=== PATIENT | male | born 1955 | race African-American/Black ===

== ENCOUNTER → 2020-10-09 09:39 | Outpatient (BNVA) | payer BC, MEDICAID, SELFPAY | PROVIDERS: PCP Internal Medicine; Visit Provider Urology | DX: N40.1 Benign prostatic hyperplasia with lower urinary tract symptoms (principal); R32 Unspecified urinary incontinence; N13.8 Other obstructive and reflux uropathy; N52.9 Male erectile dysfunction, unspecified | CPT/HCPCS: 51798 ==

== ENCOUNTER 2020-11-06 11:23 | Outpatient (REF) | payer MEDICARE, MEDICAID, SELFPAY ==
--- NOTE | ~2020-11-06 | US_ITS ---
EXAMINATION: US RETROPERITONEAL COMPLETE (RENAL) CLINICAL INFORMATION: Benign prostatic hyperplasia. COMPARISON: None TECHNIQUE: Real-time imaging of the kidneys and bladder. FINDINGS: RIGHT KIDNEY: 10.7 x 4.6 x 4.8 cm (SAG x AP x TRV). The kidney is normal in size, contour, and echogenicity. Renal cortical thickness is normal. No calculi or focal parenchymal lesions. No hydronephrosis. LEFT KIDNEY: 10.7 x 5.9 x 4.9 cm (SAG x AP x TRV). The kidney is normal in size, contour, and echogenicity. Renal cortical thickness is normal. No calculi or focal parenchymal lesions. No hydronephrosis. BLADDER: Bladder is well-distended. There may be mild diffuse bladder wall thickening. No bladder stone or mass is seen. Bilateral ureteral jets are demonstrated. Prevoid bladder volume is 222 mL. Postvoid bladder volume is 104 mL. The prostate gland is not well visualized. US/US retroperitoneal comp IMPRESSION: Normal renal ultrasound. Question mild diffuse bladder wall thickening. 100 mL post void bladder residual.
== END 2020-11-06 11:24 | disposition home or self-care (01) ==
LOC: HO.US 11:23
PROVIDERS: PCP Internal Medicine; Visit Provider Urology
DX: N40.1 Benign prostatic hyperplasia with lower urinary tract symptoms (principal); N13.8 Other obstructive and reflux uropathy
CPT/HCPCS: 76770

== ENCOUNTER → 2021-01-09 14:47 | Outpatient (BNVA) | payer MEDICARE, MEDICAID, SELFPAY | PROVIDERS: PCP Internal Medicine; Visit Provider Urology | DX: N40.1 Benign prostatic hyperplasia with lower urinary tract symptoms (principal); N13.8 Other obstructive and reflux uropathy; R32 Unspecified urinary incontinence | CPT/HCPCS: 52000; 99212 ==

== ENCOUNTER → 2021-03-13 09:31 | Outpatient (BNVA) | payer MEDICARE, MEDICAID, SELFPAY | PROVIDERS: PCP Internal Medicine; Visit Provider Urology | DX: M53.3 Sacrococcygeal disorders, not elsewhere classified (principal); M47.816 Spondylosis without myelopathy or radiculopathy, lumbar region; N40.1 Benign prostatic hyperplasia with lower urinary tract symptoms; N13.8 Other obstructive and reflux uropathy; R39.15 Urgency of urination; R32 Unspecified urinary incontinence; N52.9 Male erectile dysfunction, unspecified | CPT/HCPCS: 99202; Q3014 ==

== ENCOUNTER → 2021-04-05 13:10 | Outpatient (BNVA) | payer MEDICARE, MEDICAID, SELFPAY | PROVIDERS: PCP Internal Medicine; Visit Provider Nurse Practitioner Family | DX: M53.3 Sacrococcygeal disorders, not elsewhere classified (principal); M47.816 Spondylosis without myelopathy or radiculopathy, lumbar region | CPT/HCPCS: 99212 ==

== ENCOUNTER → 2021-05-22 10:02 | Outpatient (BNVA) | payer MEDICARE, MEDICAID, SELFPAY | PROVIDERS: PCP Family Medicine; Visit Provider Urology | DX: N32.81 Overactive bladder (principal) | CPT/HCPCS: Q3014 ==

== ENCOUNTER 2021-06-10 09:52 | Outpatient (REF) | payer MEDICARE, MEDICAID, SELFPAY ==
[2021-06-10 12:04] LABS: Prostate Specific Antigen 17.94 ng/mL (<0.05-4.0)
[2021-06-10 14:46] LABS: Appearance Urine CLOUDY; Color Urine YELLOW; Glucose Urine UA NEG (NEG); Leukocyte Esterase Urine 3+ (NEG); Nitrite Urine NEG (NEG); PH 5.5 (5.0-8.0); Urine Blood 3+ (NEG); Urine Ketones NEG (NEG); Urine Protein TRACE MG/DL (NEG-TRACE)
[2021-06-10 14:52] LABS: WBC Urine TNTC /HPF (0-4)
[2021-06-10 14:53] LABS: Bacteria Urine 2+ /LPF; Squamous Epithelial Cell Urine TRACE /LPF; WBC Clumps Urine NOTED
== END 2021-06-10 09:53 | disposition home or self-care (01) ==
LOC: HO.10HDL 09:52
PROVIDERS: Visit Provider Urology
DX: Z12.5 Encounter for screening for malignant neoplasm of prostate (principal); N13.8 Other obstructive and reflux uropathy; N40.1 Benign prostatic hyperplasia with lower urinary tract symptoms; N32.81 Overactive bladder
CPT/HCPCS: 36415; 81001; 84153; 87086; 87088; 87186

== ENCOUNTER → 2021-07-10 08:32 | Outpatient (BNVA) | payer MEDICARE, MEDICAID, SELFPAY | PROVIDERS: PCP Family Medicine; Visit Provider Urology | DX: N40.1 Benign prostatic hyperplasia with lower urinary tract symptoms (principal); N13.8 Other obstructive and reflux uropathy; R33.9 Retention of urine, unspecified | CPT/HCPCS: 51798; 99212 ==

== ENCOUNTER 2021-07-31 15:47 | Outpatient (REF) | payer MEDICARE, MEDICAID, SELFPAY ==
[2021-07-31 17:56] LABS: Appearance Urine CLEAR; Color Urine YELLOW; Glucose Urine UA NEG (NEG); Leukocyte Esterase Urine NEG (NEG); Nitrite Urine NEG (NEG); Urine Blood NEG (NEG); Urine Ketones NEG (NEG); Urine Protein NEG (NEG-TRACE)
[2021-07-31 18:48] LABS: Bacteria Urine TRACE /LPF; RBC Urine 0-2 /HPF (0); Squamous Epithelial Cell Urine TRACE /LPF; WBC Urine 0-2 /HPF (0-4)
== END 2021-07-31 15:48 | disposition home or self-care (01) ==
LOC: HO.LAB 15:47
PROVIDERS: Visit Provider Urology
DX: R33.9 Retention of urine, unspecified (principal)
CPT/HCPCS: 81001; 87086

== ENCOUNTER 2021-08-09 14:13 | Outpatient (REF) | payer MEDICARE, MEDICAID, SELFPAY ==
[2021-08-09 15:34] LABS: PSA,Total (Free>4and<10) 1.03 ng/mL (0.00-4.00)
[2021-08-09 15:39] LABS: Blood Urea Nitrogen 16 mg/dL (9-16); Estimated Glomerular Filt Rate 48
== END 2021-08-09 14:14 | disposition home or self-care (01) ==
LOC: HO.LAB 14:13
PROVIDERS: Visit Provider Urology
DX: Z12.5 Encounter for screening for malignant neoplasm of prostate (principal); N13.8 Other obstructive and reflux uropathy; N40.1 Benign prostatic hyperplasia with lower urinary tract symptoms; R39.15 Urgency of urination
CPT/HCPCS: 36415; 82565; 84153; 84520

== ENCOUNTER → 2021-08-22 10:50 | Outpatient (BNVA) | payer MEDICARE, MEDICAID, SELFPAY | PROVIDERS: PCP Family Medicine; Visit Provider Urology | DX: N40.1 Benign prostatic hyperplasia with lower urinary tract symptoms (principal); N13.8 Other obstructive and reflux uropathy; N32.81 Overactive bladder; R33.9 Retention of urine, unspecified | CPT/HCPCS: 51798; 99212 ==

== ENCOUNTER → 2021-11-27 10:25 | Outpatient (BNVA) | payer MEDICARE, MEDICAID, SELFPAY | PROVIDERS: PCP Family Medicine; Visit Provider Urology | DX: N32.81 Overactive bladder (principal); N52.9 Male erectile dysfunction, unspecified; N40.1 Benign prostatic hyperplasia with lower urinary tract symptoms; N13.8 Other obstructive and reflux uropathy; R33.8 Other retention of urine | CPT/HCPCS: Q3014 ==

== ENCOUNTER 2022-07-30 09:37 | Outpatient (REF) | payer MEDICARE, MEDICAID, SELFPAY ==
--- NOTE | ~2022-07-30 | XR_ITS ---
EXAMINATION: XR LUMBOSACRAL SPINE BENDING FILMS ONLY CLINICAL INFORMATION: M48.061 - Spinal stenosis, lumbar region without neurogenic claudication COMPARISON: None available. TECHNIQUE: Standing lateral flexion and lateral extension views of the lumbosacral spine are obtained for 2 views. FINDINGS: There is been prior posterior fusion at L2-L3 with pedicle screws and rodding and disc spacer. There are irregularity of the endplates at L2-L3. Chronicity unknown. Visualized hardware intact. No osteolysis visible around hardware. There are multilevel degenerative changes lower thoracic and lumbosacral spine. Disc narrowing greatest L3-S1. There is limited range of motion at flexion and extension. No instability. No spondylolisthesis or retrolisthesis. XR/XR lumbar spine bending only IMPRESSION: - Status post posterior fusion L2-L3. Hardware intact. - Irregularity endplates around disc spacer at L2-L3. Chronicity unknown. - Multilevel degenerative disc changes. No vertebral compression. - Limited range of motion at flexion and extension. No instability.
== END 2022-07-30 09:38 | disposition home or self-care (01) ==
LOC: HO.HOSX 09:37
PROVIDERS: PCP Family Medicine; Visit Provider Neurological Surgery
DX: M48.061 Spinal stenosis, lumbar region without neurogenic claudication (principal); Z98.1 Arthrodesis status; Z76.0 Encounter for issue of repeat prescription
CPT/HCPCS: 72120; 99212

== ENCOUNTER 2022-09-22 13:10 | Outpatient (REF) | payer MEDICARE, MEDICAID, SELFPAY ==
--- NOTE | ~2022-09-22 | MR_ITS ---
EXAMINATION: MR LUMBAR SPINE WITHOUT AND WITH CONTRAST CLINICAL INFORMATION: Spinal stenosis, lumbar region. COMPARISON: MRI scan of the lumbar spine [facility] 04/08/2018. TECHNIQUE: MRI of the lumbar spine was obtained using routine sequences with and without contrast. Intravenous contrast: Gadavist 10 mL FINDINGS: VERTEBRAL BODIES AND PARASPINAL STRUCTURES: There is a mild levoscoliosis. There is a mild anterolisthesis of L5 on S1 and there is a mild retrolisthesis of L4 on L5. There are now sequelae of an instrumented posterior decompression and fusion at L2-L3, and there are bilateral pedicular screws in L2 and L3 joined by vertical rods; an interbody device is noted at this level. There is a minimal amount of fluid in the subcutaneous soft tissues dorsal to the lumbar spine at L2-L3, without peripheral enhancement, consistent with a small seroma. There is multilevel narrowing of intervertebral disc height at L3-L4, L4-L5 and L5-S1, and in the lower thoracic spine. There are degenerative endplate contour changes at these levels with mild edematous endplate signal and enhancement at L4-L5. Mild fatty endplate signal changes are seen at L5-S1. Vertebral body heights maintained, and no fractures are demonstrated. Overall, marrow signal is slightly heterogenous. The visualized retroperitoneal and pelvic structures are unremarkable. CONUS MEDULLARIS AND CAUDA EQUINA: Normal, terminating at the level of L1. The lower thoracic spinal cord has normal signal and there is no abnormal enhancement. The cauda equina nerve roots and filum terminale appear normal. SPINAL LEVELS: T9-T10 through T11-T12: On the sagittal images there are posterior disc protrusions at these levels without compression of the lower thoracic spinal cord. There are foraminal disc osteophytes bilaterally at T8-T9 and T10 and T10-T11. L1-L2: The facet joints appear normal bilaterally. Disc contour is normal. There is no central stenosis or foraminal narrowing. L2-L3: There are now sequelae of an instrumented posterior decompression and fusion and likely left hemilaminectomy. Posterior vertebral body contours are normal. There is a left foraminal disc protrusion with impingement on the exiting left L2 nerve root, similar compared to prior imaging. There is no central stenosis. L3-L4: There is moderate bilateral facet arthropathy with ligamenta flava hypertrophy and facet joint effusions. There is a shallow posterior disc protrusion flattens the ventral thecal sac, but there is no central stenosis. There are left greater than right foraminal disc protrusions with impingement on the exiting L3 nerve roots bilaterally. There is no central stenosis. L4-L5: There is moderate bilateral facet arthropathy with ligamenta flava hypertrophy and facet joint effusions. There has been slight interval increase in the central and right paracentral disc protrusion with distortion also ventral thecal sac and with narrowing of the right greater than left subarticular recesses. There is mild central stenosis. There is a right foraminal disc protrusion with impingement on the exiting right L4 nerve root, similar compared to prior imaging. L5-S1: There is moderate to severe bilateral facet arthropathy with ligamenta flava hypertrophy and facet joint effusions, more prominent on the left compared to prior imaging. There is unroofing of the disc as a result of the anterolisthesis, and there is mild narrowing of the bilateral subarticular recesses. There are bilateral foraminal disc protrusions with impingement on the exiting L5 nerve roots bilaterally, similar compared to prior imaging. There is no central stenosis. MR/MR lumbar spine wo/w con IMPRESSION: 1. There are now sequelae of an instrumented posterior decompression and fusion at L2-L3. There is a left foraminal disc protrusion impinging on the exiting left L2 nerve root, similar compared to prior imaging. There is no central stenosis. 2. At L4-L5 there is facet arthropathy and there has been slight interval increase in the central and right paracentral disc protrusion. There is narrowing of the right greater than left subarticular recesses and there is mild central stenosis. A right foraminal disc protrusion impinges on the exiting right L4 nerve root, similar compared to prior imaging. 3. At L3-L4 there is facet arthropathy and there is a posterior disc protrusion. There are left greater than right foraminal disc protrusions impinging on the exiting L3 nerve roots. There is no central stenosis. 4. At L5-S1 there is facet arthropathy and there is an anterolisthesis. There are bilateral foraminal disc protrusions impinging on the exiting L5 nerve roots, similar compared to prior imaging. There is no central stenosis.
[2022-09-22 17:41] LABS: Prostate Specific Antigen 0.43 ng/mL (<0.05-4.0)
== END 2022-09-22 13:11 | disposition home or self-care (01) ==
LOC: HO.MRI 13:10
PROVIDERS: Absent Provider Urology; PCP Family Medicine; Visit Provider Neurological Surgery
DX: Z12.5 Encounter for screening for malignant neoplasm of prostate (principal); M48.061 Spinal stenosis, lumbar region without neurogenic claudication; N13.8 Other obstructive and reflux uropathy; N40.1 Benign prostatic hyperplasia with lower urinary tract symptoms; Z98.1 Arthrodesis status
CPT/HCPCS: 36415; 72158; 84153; A9585

== ENCOUNTER 2022-10-09 15:23 | Outpatient (AMB) | payer MEDICARE, MEDICAID, SELFPAY ==
--- NOTE | 2022-10-09 12:20 | A.OFFVIS_ITS ---
Intake Intake Visit Reasons: 6m/PVR Intake Note: Patient presents today for a follow-up on 6mo PVR: Meds- Finasteride, Furosemide, Tadalafil, Mirabegron & Terazosin. Allergies to Antibiotic- Penicillin & Vancomycin Blood Thinner- Furosemide PSA Results- 0.72 ng/mL, 09/22/2022 PVR- 84 ml Dye Range Feeder Required: No Accompanied by: Self / Same As Patient Allergies Penicillins [PENICILLINS] Allergy (Severe, Verified 10/09/22 15:41) ANAPHYLAXIS gabapentin [GABAPENTIN] Allergy (Intermediate, Verified 10/09/22 15:41) RASH lamotrigine [From LAMICTAL] Allergy (Intermediate, Verified 10/09/22 15:41) RASH vancomycin [VANCOMYCIN] Allergy (Intermediate, Verified 10/09/22 15:41) NAUSEA & VOMITING doxycycline [DOXYCYCLINE] Adverse Reaction (Severe, Verified 10/09/22 15:41) DIARRHEA Medication List - Last Reconciled 10/09/22 by Clark Sandoval MD atorvastatin 20 mg PO DAILY baclofen 20 mg PO TID bupropion HCl 300 mg PO QAM bupropion HCl 150 mg PO QAM cetirizine 10 mg PO BID cholecalciferol (vitamin D3) 25 mcg PO DAILY ciclopirox 0.77% appl topical clonazepam 0.5 mg PO DAILY PRN docusate sodium 100 mg PO DAILY epinephrine 0.3 mg IM finasteride 5 mg PO DAILY 90 days fluconazole mg PO fluocinonide 0.05% appl topical fluticasone propionate 50 mcg/actuation 2 sprays intranasal DAILY furosemide 40 mg PO DAILY griseofulvin microsize 500 mg PO DAILY hydrocortisone 2.5% topical BID PRN ketotifen fumarate 0.025%(0.035%) 1 drp ophthalmic (eye) BID lisdexamfetamine (Vyvanse) 70 mg PO QAM lisinopril 40 mg PO DAILY meloxicam 15 mg PO DAILY PRN metoprolol tartrate 12.5 mg PO BID minocycline 50 mg PO BID multivitamin 1 tab PO DAILY omeprazole 20 mg PO DAILY prednisolone acetate 1% 1 drp ophthalmic (eye) BID pregabalin 300 mg PO BID psyllium husk (with sugar) 3.4 gram/7 gram (Wal-Mucil Fiber (sugar)) PO quetiapine 50 - 100 mg PO BEDTIME PRN selenium sulfide 2.5% mL topical BID tadalafil 10 mg PO DAILY 90 days terazosin 5 mg PO BEDTIME vibegron (Gemtesa) 75 mg PO DAILY vortioxetine (Trintellix) 20 mg PO QAM HPI HPI Comments History of Present Illness Details 10/09/2022-- Fredy is a 66-year-old male who presents today to the office for a 6 month follow up. He has seen Dr. Alvarez on 11/27/2021 for erectile dysfunction, overactive bladder, and elevated PSA. He was prescribed Myrbetriq and Cialis. He reports intermittent weak urinary stream. He reports frequent urination for every one hour during the day time. He noticed significant improvement in night time symptoms, urinates 1 time at night now. Of note, his PSA was 17.94 on 06/10/2021, when he was refer red for elevated PSA, subsequent values were within the normal limits. He had PSA done on 08/09/21 which showed 1.03. He also had another PSA done on 09/21/22 which showed 0.43. He is on Finasteride 5 mg, tadalafil 10 mg, terazosin 5 mg. Evaluation today UA: leukocytes: negative; blood: negative; bladder scan PVR 84 mL. Plan: Follow up in 10 weeks Continue tadalafil 10 mg, terazosin 5 mg at night time and finasteride 5 mg daily. Will try the Gemtesa 75 mg to replace Myrbetriq 25 mg. 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 History of colon polyps Incontinence Initial high blood pressure determined by examination UTI (urinary tract infection) Vitamin D deficiency Surgical History H/O angioplasty H/O hand surgery H/O knee surgery History of lumbar laminectomy Hx of colonoscopy Hx of inguinal hernia surgery Hx of tonsillectomy S/P cardiac cath S/P lumbar spinal fusion Status post lumbar spine surgery for decompression of spinal cord Social History Alcohol intake: current Patient Tobacco Use Status: Former Tobacco user Tobacco use type: Cigarette Cigarette Packs Per Day: 0.30 Years Smoked: 44 e-Cigarette/Vaping Use: Never Used Review of Systems Const All systems reviewed & are unremarkable except as noted in HPI and below Reports no additional complaints Eyes Reports no additional complaints ENT Reports no additional complaints Card Denies dyspnea Resp Denies cough and Denies dyspnea GI Reports no additional complaints Musc Reports no additional complaints Skin/Breast Denies rash and Denies unusual bruising Neuro Reports no additional complaints Psych Reports no additional complaints Endo Reports no additional complaints Crescencio/Lymph Reports no additional complaints Aller/Immun Reports no additional complaints Physical Exam Const General: no acute distress and well developed Nutritional Appearance: overweight Orientation/consciousness: patient oriented x3 HEENT Head: Yes normocephalic and Yes atraumatic Eyes Conjunctivae: conjunctivae normal Neck Neck: Yes normal visual inspection Chest Chest palpation & inspection: normal inspection of the chest Resp Effort & Inspection: normal respiratory effort Cardio Rate: regular rate GI Inspection: Yes normal to inspection Palpation (GI): Soft to palpation Skin General skin exam: no rashes or lesions noted Neuro General: patient oriented x3 Extrem General: No pedal edema Psych Appearance: grossly normal Affect: normal affect Office Procedures Post Void Residual Post Residual Void Post Void Residual (PVR): 84 [id number] Void Residual by ultrasound Results AMB Urinalysis, Automated UA Leukoctes 0 Deidra/uL Last Edit by BON Bacon on 10/09/22 16:00 UA Nitrite Negative Last Edit by BON Bacon on 10/09/22 16:00 UA Urobilinogen 0.2 mg/dL Last Edit by BON Bacon on 10/09/22 16:0 0 UA Protein 0 mg/dL Last Edit by BON Bacon on 10/09/22 16:00 UA pH 7.0 Last Edit by BON Bacon on 10/09/22 16:00 UA Blood 0 Alber/uL Last Edit by Whitlola Freitasirez, RMA on 10/09/22 16:00 UA Specific [place] 1.010 Last Edit by Whitlola Freitasirez, RMA on 10/09/22 16: 00 UA Ketone Negative Last Edit by Whitlola Freitasirez, RMA on 10/09/22 16:00 UA Bilirubin 0 mg/dL Last Edit by Finn Mancia, RMA on 10/09/22 16:00 UA Glucose 0 mg/dL Last Edit by Whitlola Gavino, RMA on 10/09/22 16:00 Results Reviewed Results Reviewed: Laboratory Last Values Urine pH (Auto) 7.0 10/09/22 15:28 Specific [place] (Auto) 1.010 10/09/22 15:28 Urine Protein (Auto) 0 mg/dL 10/09/22 15:28 Glucose (UA)(Auto) 0 mg/dL 10/09/22 15:28 Urine Ketones (Auto) Negative 10/09/22 15:28 Urine Blood (Auto) 0 Alber/uL 10/09/22 15:28 Urine Nitrite (Auto) Negative 10/09/22 15:28 Urine Bilirubin (Auto) 0 mg/dL 10/09/22 15:28 Urine Urobilinogen (Auto) 0.2 mg/dL 10/09/22 15:28 Leukocyte Esterase (Auto) 0 Deidra/uL 10/09/22 15:28 Assessment & Plan Assessment & Plan (1) Overactive bladder: Code(s): N32.81 - Overactive bladder (2) Erectile dysfunction: Code(s): N52.9 - Male erectile dysfunction, unspecified (3) BPH (benign prostatic hyperplasia): Code(s): N40.0 - Benign prostatic hyperplasia without lower urinary tract symptoms Plan Follow up in 10 weeks Continue tadalafil 10 mg, terazosin 5 mg at night time and finasteride 5 mg daily. Will try the Gemtesa 75 mg to replace Myrbetriq 25 mg. Orders: Orders AMB Urinalysis Automated 10/09/22 Z13.9 - Encounter for screening, unspecified AMB Post Void Residual by ultrasound 10/09/22 N39.8 - Other specified disorders of urinary system Medications: New vibegron (Gemtesa) 75 mg PO DAILY 90 tabs 1RF Patient Instructions: The patient had an opportunity to ask questions regarding treatment plan. All questions were answered. Laboratory studies and physical exam results were discussed and reviewed in detail. No major barriers to understanding were identified. The patient expressed understanding and agreement with the above treatment plan.? ? ? The patient is aware they should contact our office by phone for worsening of their current condition or the appearance of new symptoms. Compliance is encouraged with any medications and followup testing that is ordered.? ? ? It is a privilege to be allowed the opportunity to participate in the urologic care of your patient. If you have any questions or concerns regarding treatment for the above conditions please do not hesitate to contact me. The office telephone contact is [phone].? ? ? This note is constructed in part using voice recognition software. While every effort has been made to ensure accuracy bleach analyst errors may have been included.? ? ? Yours sincerely,? ? ? Clark Sandoval MD? Coding Level of Care Code Est Pt Level 4 (57361) Diagnoses Overactive bladder N32.81 Erectile dysfunction N52.9 BPH (benign prostatic hyperplasia) N40.0 CPT Codes Post Residual Void - PVR CPT Code: 97533-Bvta Void Residual by ultrasound ([id number])
== END 2022-10-09 16:12 | disposition home or self-care (01) ==
PROVIDERS: Visit Provider Urology
DX: N32.81 Overactive bladder (principal); N52.9 Male erectile dysfunction, unspecified; N40.0 Benign prostatic hyperplasia without lower urinary tract symptoms
CPT/HCPCS: 99214

== ENCOUNTER → 2022-10-09 15:23 | Outpatient (BNVA) | payer MEDICARE, MEDICAID, SELFPAY | PROVIDERS: Visit Provider Urology | DX: N32.81 Overactive bladder (principal); N52.9 Male erectile dysfunction, unspecified; N40.0 Benign prostatic hyperplasia without lower urinary tract symptoms; Z79.899 Other long term (current) drug therapy | CPT/HCPCS: 51798; 99212 ==

== ENCOUNTER 2022-12-23 12:36 | Outpatient (AMB) | payer MEDICARE, MEDICAID, SELFPAY ==
--- NOTE | 2022-12-23 12:58 | MHC.OFFVIS ---
Intake Intake Visit Reasons: 10w/OAB/PVR Intake Note: Patient is Present for Follow Up PVR Urology Medication: Finasteride, Tadalafil,Terazosin Gemtesa Antibiotic Allergies: Penicillin, Vancomycin, Doxycycline Blood Thinners: None Pharmacy: [facility] PVR: 114 Allergies Penicillins [PENICILLINS] Allergy (Severe, Verified 12/23/22 13:08) ANAPHYLAXIS gabapentin [GABAPENTIN] Allergy (Intermediate, Verified 12/23/22 13:08) RASH lamotrigine [From LAMICTAL] Allergy (Intermediate, Verified 12/23/22 13:08) RASH vancomycin [VANCOMYCIN] Allergy (Intermediate, Verified 12/23/22 13:08) NAUSEA & VOMITING doxycycline [DOXYCYCLINE] Adverse Reaction (Severe, Verified 12/23/22 13:08) DIARRHEA HPI HPI Comments History of Present Illness Details Ash is a pleasant male. He is a patient of Dr. Gray. He is seen for the following urologic issues - erectile dysfunction - BPH with urinary leakage - overactive bladder - elevated PSA - 06/21 17 Continue progressive symptoms He is on Finasteride 5 mg, tadalafil 10 mg, terazosin 5 mg Recommend office cystoscopy Lower urinary tract symptoms Ongoing Does have unsensed accidents suggestive of urge - Myrbetriq States stream is adequate Current medications terazosin, finasteride Prior medications tamsulosin Cystoscopy 12/20 small prostate PSA 06/21 [facility] 2.3, 06/21 [facility] 18, 08/21 1.0, 09/21 0.4 Retention was combination tolterodine and Myrbetriq - that elevated PSA Erectile dysfunction Longstanding Has trialed multiple different treatment options Did respond to injections Unable to currently afford these Can trial high-dose tadalafil daily [facility] Medical History Incontinence Vitamin D deficiency Constipation History of colon polyps Bilateral leg edema UTI (urinary tract infection) Herniation of lumbar intervertebral disc with radiculopathy Initial high blood pressure determined by examination Glaucoma Dry eyes Hernia of abdominal cavity Surgical History S/P lumbar spinal fusion Hx of inguinal hernia surgery History of lumbar laminectomy H/O knee surgery H/O hand surgery Hx of colonoscopy H/O angioplasty S/P cardiac cath Status post lumbar spine surgery for decompression of spinal cord Hx of tonsillectomy Social History Alcohol intake: current Patient Tobacco Use Status: Former Tobacco user Tobacco use type: Cigarette Cigarette Packs Per Day: 0.30 Years Smoked: 44 e-Cigarette/Vaping Use: Never Used Review of Systems Const Denies chills and Denies fever(s) Card Reports no additional complaints and Denies syncope Resp Denies cough GI Denies abdominal pain and Denies heartburn Reports as per HPI and Denies change in libido Neuro Denies syncope Psych Denies change in libido Endo Denies change in libido Physical Exam Const General: cooperative, healthy appearing, comfortable and no acute distress Orientation/consciousness: patient oriented x3 HEENT Face and sinus: Yes normal facial exam Mouth: moist mucous membranes Neck Neck: Yes normal visual inspection, Yes full ROM and Yes trachea midline Chest Chest palpation & inspection: normal inspection of the chest Resp Effort & Inspection: normal respiratory effort, able to speak in complete sentences and no respiratory distress GI Inspection: Yes normal to inspection Back/Spine/Pelvis Cervical Spine: normal cervical lordosis Thoracic/Lumbar Spine: thoracic and lumbar spine normal to inspection Skin General skin exam: no rashes or lesions noted Neuro General: patient oriented x3, gait normal, tone normal and moves all extremities Extrem General: Yes normal to inspection and Yes capillary refill normal Office Procedures Post Void Residual Post Residual Void Post Void Residual (PVR): 114 [id number] Void Residual by ultrasound Results AMB Urinalysis, Automated UA Leukoctes 0 Deidra/uL Last Edit by BON Baig on 12/23/22 13:14 UA Nitrite Negative Last Edit by BON Baig on 12/23/22 13:14 UA Urobilinogen 0.2 mg/dL Last Edit by BON Baig on 12/23/22 13:14 UA Protein 0 mg/dL Last Edit by BON Baig on 12/23/22 13:14 UA pH 6.0 Last Edit by BON Baig on 12/23/22 13:14 UA Blood 0 Alber/uL Last Edit by BON Baig on 12/23/22 13:14 UA Specific [place] 1.015 Last Edit by Kelly Steele RMA on 12/23/22 13:14 UA Ketone Negative Last Edit by Kelly Steele RMA on 12/23/22 13:14 UA Bilirubin 0 mg/dL Last Edit by Kelly Steele, RMA on 12/23/22 13:14 UA Glucose 0 mg/dL Last Edit by Kelly Steele, RMA on 12/23/22 13:14 Results Reviewed Results Reviewed: Laboratory Last Values Urine pH (Auto) 6.0 12/23/22 13:08 Specific [place] (Auto) 1.015 12/23/22 13:08 Urine Protein (Auto) 0 mg/dL 12/23/22 13:08 Glucose (UA)(Auto) 0 mg/dL 12/23/22 13:08 Urine Ketones (Auto) Negative 12/23/22 13:08 Urine Blood (Auto) 0 Alber/uL 12/23/22 13:08 Urine Nitrite (Auto) Negative 12/23/22 13:08 Urine Bilirubin (Auto) 0 mg/dL 12/23/22 13:08 Urine Urobilinogen (Auto) 0.2 mg/dL 12/23/22 13:08 Leukocyte Esterase (Auto) 0 Deidra/uL 12/23/22 13:08 Assessment & Plan Assessment & Plan (1) BPH (benign prostatic hyperplasia): Code(s): N40.0 - Benign prostatic hyperplasia without lower urinary tract symptoms (2) Overactive bladder: Code(s): N32.81 - Overactive bladder Plan Plan office cystoscopy Orders: Orders AMB Urinalysis Automated 12/23/22 Z13.9 - Encounter for screening, unspecified AMB Post Void Residual by ultrasound 12/23/22 N40.0 - Benign prostatic hyperplasia without lower urinary tract symptoms Patient Instructions: Imaging studies, laboratory and physical exam results were discussed and reviewed in detail. No major barriers to patient understanding were identified. An opportunity to ask questions regarding the treatment plan was provided. All questions were answered. The patient expressed understanding and agreement with the above treatment plan. The patient is aware they should contact our office by phone for worsening of their current condition or the appearance of new urologic symptoms. Compliance is encouraged with any medications and followup testing that is ordered. It is a privilege to participate in the urologic care of your patient. If you have any questions or concerns regarding treatment for the above conditions, or other urologic issues, please do not hesitate to contact me. The office telephone contact is [phone]. This note is constructed using voice recognition software. While every effort has been made to ensure accuracy magnetic healer errors may have been included. Yours sincerely, Dr Kailash Alvarez MD, [facility] - Urology Providers of Expert, Compassionate Care for the Genitourinary System Coding Level of Care Code Est Pt Level 3 (06652) Diagnoses BPH (benign prostatic hyperplasia) N40.0 Overactive bladder N32.81 CPT Codes Post Residual Void - PVR CPT Code: 30813-Mqhx Void Residual by ultrasound ([id number])
== END 2022-12-23 13:27 | disposition home or self-care (01) ==
PROVIDERS: PCP Family Medicine; Referring Provider Family Medicine; Visit Provider Urology
DX: N40.0 Benign prostatic hyperplasia without lower urinary tract symptoms (principal); N32.81 Overactive bladder
CPT/HCPCS: 99213

== ENCOUNTER → 2022-12-23 12:36 | Outpatient (BNVA) | payer MEDICARE, MEDICAID, SELFPAY | PROVIDERS: PCP Family Medicine; Visit Provider Urology | DX: N40.0 Benign prostatic hyperplasia without lower urinary tract symptoms (principal); N32.81 Overactive bladder | CPT/HCPCS: 51798; 81003; 99212 ==

== ENCOUNTER 2023-03-10 13:45 | Outpatient (AMB) | payer MEDICARE, MEDICAID, SELFPAY ==
--- NOTE | 2023-03-10 14:10 | A.OFFVIS_ITS ---
Intake Intake Visit Reasons: Cysto(BPH) Intake Note: Patient is Present for Cystoscopy Urology Med: Finasteride, Tadalafil ,Terazosin , Gemtesa Antibiotic Allergy:Penicillin, Vancomycin, Doxycycline Blood Thinner: None URO- G Disposable Cystoscope lot: [id number] exp: 07/13/2024 Allergies Penicillins [PENICILLINS] Allergy (Severe, Verified 12/23/22 13:08) ANAPHYLAXIS gabapentin [GABAPENTIN] Allergy (Intermediate, Verified 12/23/22 13:08) RASH lamotrigine [From LAMICTAL] Allergy (Intermediate, Verified 12/23/22 13:08) RASH vancomycin [VANCOMYCIN] Allergy (Intermediate, Verified 12/23/22 13:08) NAUSEA & VOMITING doxycycline [DOXYCYCLINE] Adverse Reaction (Severe, Verified 12/23/22 13:08) DIARRHEA HPI HPI Comments History of Present Illness Details Ash is a pleasant male. He is a patient of Dr. Gray. He is seen for the following urologic issues - erectile dysfunction - BPH with urinary leakage - overactive bladder - elevated PSA - 06/21 17 Here for office cystoscopy Open bladder neck Recommendations to minimize stimulants Continue current therapy He is on Finasteride 5 mg, tadalafil 10 mg, terazosin 5 mg Lower urinary tract symptoms Ongoing Does have unsensed accidents suggestive of urge - Myrbetriq States stream is adequate Current medications terazosin, finasteride Prior medications tamsulosin Cystoscopy 12/20 small prostate PSA 06/21 [facility] 2.3, 06/21 [facility] 18, 08/21 1.0, 09/21 0.4 Retention was combination tolterodine and Myrbetriq - that elevated PSA Erectile dysfunction Longstanding Has trialed multiple different treatment options Did respond to injections Unable to currently afford these Can trial high-dose tadalafil daily PFSH Medical History Incontinence Vitamin D deficiency Constipation History of colon polyps Bilateral leg edema UTI (urinary tract infection) Herniation of lumbar intervertebral disc with radiculopathy Initial high blood pressure determined by examination Glaucoma Dry eyes Hernia of abdominal cavity Surgical History S/P lumbar spinal fusion Hx of inguinal hernia surgery History of lumbar laminectomy H/O knee surgery H/O hand surgery Hx of colonoscopy H/O angioplasty S/P cardiac cath Status post lumbar spine surgery for decompression of spinal cord Hx of tonsillectomy Social History Alcohol intake: current Patient Tobacco Use Status: Former Tobacco user Tobacco use type: Cigarette Cigarette Packs Per Day: 0.30 Years Smoked: 44 e-Cigarette/Vaping Use: Never Used Review of Systems Const Denies chills and Denies fever(s) Card Reports no additional complaints and Denies syncope Resp Denies cough GI Denies abdominal pain and Denies heartburn Reports as per HPI and Denies change in libido Neuro Denies syncope Psych Denies change in libido Endo Denies change in libido Physical Exam Const General: cooperative, healthy appearing, comfortable and no acute distress Orientation/consciousness: patient oriented x3 HEENT Face and sinus: Yes normal facial exam Mouth: moist mucous membranes Neck Neck: Yes normal visual inspection, Yes full ROM and Yes trachea midline Chest Chest palpation & inspection: normal inspection of the chest Resp Effort & Inspection: normal respiratory effort, able to speak in complete sentences and no respiratory distress GI Inspection: Yes normal to inspection Back/Spine/Pelvis Cervical Spine: normal cervical lordosis Thoracic/Lumbar Spine: thoracic and lumbar spine normal to inspection Skin General skin exam: no rashes or lesions noted Neuro General: patient oriented x3, gait normal, tone normal and moves all extremities Extrem General: Yes normal to inspection and Yes capillary refill normal Office Procedures Cystoscopy Consent Discussed risk and benefit or proposed procedure with the patient. Information consent for procedure given to the patient. Discussed technical aspects, risks, benefits and alternatives in full. Addressed all of the patient's questions and concerns regarding the procedure. The patient demonstrated knowledge and understanding. They wish to proceed with this procedure. Preparation The patient was prepped in the usual manner. A refrigerated company driver was present and in the room. Genitalia was prepped with betadine solution in a sterile manner. Lidocaine Jelly 2% was placed into the urethra and 16Fr flexible Olympus cystoscope was inserted into the meatus after adequate lubrication. Procedure Meatus - Urethra anterior and posterior urethra normal Prostatic Urethra unremarkable Bladder examination with retroflexion of cystoscope Bladder Orifices normal shape and position Bladder Capacity medium Trabeculations grade 2 Cellule Formation - Diverticulum Formation none - severity location Mucosal Erythema - Bladder Tumor - 48219-[id number] DISPOSABLE SCOPE URO-G FLEXIBLE SCOPE Procedure code (CPT) selection complete Office Meds lidocaine HCl 2 % mucosal jelly in applicator Performing Provider: Kailash Alvarez MD [place] [facility] Administered by: Andie Dugan RN on 03/10/23 14:20 Dose Route Admin Location Dispensed Lot Number Expiration Date NDC Patrol Man 10 mL intra-urethral 10 mL nitrofurantoin monohydrate/macrocrystals 100 mg capsule Performing Provider: Kailash Alvarez MD Performing [place] [facility] Administered by: Andie Dugan RN on 03/10/23 14:20 Dose Route Admin Location Dispensed Lot Number Expiration Date NDC Patrol Man 100 mg PO 1 cap naproxen 500 mg tablet Performing Provider: Kailash Alvarez MD Performing Location[place] [facility] Administered by: Andie Dugan RN on 03/10/23 14:20 Dose Route Admin Location Dispensed Lot Number Expiration Date NDC Patrol Man 500 mg PO 1 tab Assessment & Plan Assessment & Plan (1) BPH (benign prostatic hyperplasia): Code(s): N40.0 - Benign prostatic hyperplasia without lower urinary tract symptoms (2) Elevated PSA: Code(s): R97.20 - Elevated prostate specific antigen [PSA] Plan Six-month follow-up PVR Orders: Orders AMB Cystoscopy 03/10/23 N40.1 - Benign prostatic hyperplasia with lower urinary tract symptoms, N13.8 - Other obstructive and reflux uropathy Medications: Changed From terazosin 5 mg PO BEDTIME N40.1 - Benign prostatic hyperplasia with lower urinary tract symptoms, N13.8 - Other obstructive and reflux uropathy, N40.0 - Benign prostatic hyperplasia without lower urinary tract symptoms To terazosin 5 mg PO BEDTIME 90 caps 1RF 90 days N40.1 - Benign prostatic hyperplasia with lower urinary tract symptoms, N13.8 - Other obstructive and reflux uropathy, N40.0 - Benign prostatic hyperplasia without lower urinary tract symptoms Refilled finasteride 5 mg PO DAILY 90 tabs 1RF 90 days N40.1 - Benign prostatic hyperplasia with lower urinary tract symptoms, N13.8 - Other obstructive and reflux uropathy Patient Instructions: Imaging studies, laboratory and physical exam results were discussed and reviewed in detail. No major barriers to patient understanding were identified. An opportunity to ask questions regarding the treatment plan was provided. All questions were answered. The patient expressed understanding and agreement with the above treatment plan. The patient is aware they should contact our office by phone for worsening of their current condition or the appearance of new urologic symptoms. Compliance is encouraged with any medications and followup testing that is ordered. It is a privilege to participate in the urologic care of your patient. If you have any questions or concerns regarding treatment for the above conditions, or other urologic issues, please do not hesitate to contact me. The office telephone contact is [phone]. This note is constructed using voice recognition software. While every effort has been made to ensure accuracy outdoor landscape architect errors may have been included. Yours sincerely, Dr Kailash Alvarez MD, [facility] - Urology Providers of Expert, Compassionate Care for the Genitourinary System Coding Level of Care Code Est Pt Level 3 (46134) Diagnoses BPH (benign prostatic hyperplasia) N40.0 Elevated PSA R97.20 CPT Codes Cystoscopy - CPT: 04371-[id number] ([id number])
== END 2023-03-10 14:40 | disposition home or self-care (01) ==
PROVIDERS: PCP Family Medicine; Visit Provider Urology
DX: N40.0 Benign prostatic hyperplasia without lower urinary tract symptoms (principal); R97.20 Elevated prostate specific antigen [PSA]
CPT/HCPCS: 52000; 99213

== ENCOUNTER → 2023-03-10 13:45 | Outpatient (BNVA) | payer MEDICARE, MEDICAID, SELFPAY | PROVIDERS: PCP Family Medicine; Visit Provider Urology | DX: N40.0 Benign prostatic hyperplasia without lower urinary tract symptoms (principal); R97.20 Elevated prostate specific antigen [PSA] | CPT/HCPCS: 52000; 99212 ==

== ENCOUNTER 2023-09-08 13:31 | Outpatient (AMB) | payer MEDICARE, MEDICAID, SELFPAY ==
--- NOTE | 2023-09-08 13:45 | MHC.OFFVIS ---
Intake Visit Reasons: 6m/PVR Intake Note: Patient is Present for PVR/ Urology Med: Gemtesa, Finasteride, Terazosin, Tadalafil Antibiotic Allergy: Penicillins, Blood Thinner: None Last PVR: 114 Todays PVR: 135 Bioinformatician Required: No Allergies Penicillins [PENICILLINS] Allergy (Severe, Verified 09/08/23 13:57) ANAPHYLAXIS gabapentin [GABAPENTIN] Allergy (Intermediate, Verified 09/08/23 13:57) RASH lamotrigine [From LAMICTAL] Allergy (Intermediate, Verified 09/08/23 13:57) RASH vancomycin [VANCOMYCIN] Allergy (Intermediate, Verified 09/08/23 13:57) NAUSEA & VOMITING doxycycline [DOXYCYCLINE] Adverse Reaction (Severe, Verified 09/08/23 13:57) DIARRHEA Medication List - Last Reconciled 09/08/23 by Kailash Alvarez MD atorvastatin 20 mg PO DAILY baclofen 20 mg PO TID bupropion HCl XL 300 mg PO QAM bupropion HCl XL 150 mg PO QAM cetirizine 10 mg PO BID cholecalciferol (vitamin D3) 25 mcg PO DAILY ciclopirox 0.77% appl topical clonazepam 0.5 mg PO DAILY PRN docusate sodium 100 mg PO DAILY epinephrine 0.3 mg IM finasteride 5 mg PO DAILY 90 days fluconazole mg PO fluocinonide 0.05% appl topical fluticasone propionate 50 mcg/actuation 2 sprays intranasal DAILY furosemide 40 mg PO DAILY griseofulvin microsize 500 mg PO DAILY hydrocortisone 2.5% topical BID PRN ketotifen fumarate 0.025%(0.035%) 1 drp ophthalmic (eye) BID lisdexamfetamine (Vyvanse) 70 mg PO QAM lisinopril 40 mg PO DAILY meloxicam 15 mg PO DAILY PRN metoprolol tartrate 12.5 mg PO BID minocycline 50 mg PO BID multivitamin 1 tab PO DAILY omeprazole 20 mg PO DAILY prednisolone acetate 1% 1 drp ophthalmic (eye) BID pregabalin 300 mg PO BID psyllium husk (with sugar) 3.4 gram/7 gram (Wal-Mucil Fiber (sugar)) PO quetiapine 50 - 100 mg PO BEDTIME PRN selenium sulfide 2.5% mL topical BID terazosin 5 mg PO BEDTIME 90 days vibegron (Gemtesa) 75 mg PO DAILY vortioxetine (Trintellix) 20 mg PO QAM HPI Comments Details: Ash is a pleasant male. He is a patient of Dr. Gray. He is seen for the following urologic issues - erectile dysfunction - BPH with urinary leakage - overactive bladder - elevated PSA - 06/21 17 Current PVR 120 cc Continue current therapy He is on Finasteride 5 mg, tadalafil 10 mg, terazosin 5 mg, Gemtessa Has complicated medical history Currently with bilateral pitting edema. We will be calling primary care. Lower urinary tract symptoms Ongoing Does have unsensed accidents suggestive of urge - Myrbetriq States stream is adequate Current medications terazosin, finasteride Prior medications tamsulosin Cystoscopy 12/20 small prostate - open neck PSA 06/21 [facility] 2.3, 06[place] [facility] [place], 08/21 1.0, 09/21 0.4 Retention was combination tolterodine and Myrbetriq - that elevated PSA Erectile dysfunction Longstanding Has trialed multiple different treatment options Did respond to injections Unable to currently afford these Can trial high-dose tadalafil daily PFSH Medical History Incontinence Vitamin D deficiency Constipation History of colon polyps Bilateral leg edema UTI (urinary tract infection) Herniation of lumbar intervertebral disc with radiculopathy Initial high blood pressure determined by examination Glaucoma Dry eyes Hernia of abdominal cavity Surgical History S/P lumbar spinal fusion Hx of inguinal hernia surgery History of lumbar laminectomy H/O knee surgery H/O hand surgery Hx of colonoscopy H/O angioplasty S/P cardiac cath Status post lumbar spine surgery for decompression of spinal cord Hx of tonsillectomy Social History Alcohol intake: current Patient Tobacco Use Status: Former Tobacco user Tobacco use type: Cigarette Cigarette Packs Per Day: 0.30 Years Smoked: 44 e-Cigarette/Vaping Use: Never Used Review of Systems Const Denies chills and Denies fever(s) Card Reports no additional complaints and Denies syncope Resp Denies cough GI Denies abdominal pain and Denies heartburn Reports as per HPI and Denies change in libido Neuro Denies syncope Psych Denies change in libido Endo Denies change in libido Physical Exam Const General: cooperative, healthy appearing, comfortable and no acute distress Orientation/consciousness: patient oriented x3 HEENT Face and sinus: Yes normal facial exam Mouth: moist mucous membranes Neck Neck: Yes normal visual inspection, Yes full ROM and Yes trachea midline Chest Chest palpation & inspection: normal inspection of the chest Resp Effort & Inspection: normal respiratory effort, able to speak in complete sentences and no respiratory distress GI Inspection: Yes normal to inspection Back/Spine/Pelvis Cervical Spine: normal cervical lordosis Thoracic/Lumbar Spine: thoracic and lumbar spine normal to inspection Skin General skin exam: no rashes or lesions noted Neuro General: patient oriented x3, gait normal, tone normal and moves all extremities Extrem General: Yes normal to inspection and Yes capillary refill normal Office Procedures Post Void Residual Post Residual Void Post Void Residual (PVR): 135 [id number] Void Residual by ultrasound Assessment & Plan Assessment & Plan (1) BPH (benign prostatic hyperplasia): Code(s): N40.0 - Benign prostatic hyperplasia without lower urinary tract symptoms Category: Medical (2) Elevated PSA: Code(s): R97.20 - Elevated prostate specific antigen [PSA] Category: Medical (3) Urinary retention with incomplete bladder emptying: Code(s): R33.9 - Retention of urine, unspecified Category: Medical (4) Overactive bladder: Code(s): N32.81 - Overactive bladder Category: Medical (5) Urinary incontinence: Code(s): R32 - Unspecified urinary incontinence Category: Medical Plan Six-month follow-up nurse-practitioner Orders: Orders AMB Post Void Residual by ultrasound Today R33.9 - Retention of urine, unspecified Medications: Discontinued tadalafil Discontinued Reason: Patient Completed Course 10 mg PO DAILY 90 days 90 tabs 0RF sexual activity N52.01 - Erectile dysfunction due to arterial insufficiency Patient Instructions: Imaging studies, laboratory and physical exam results were discussed and reviewed in detail. No major barriers to patient understanding were identified. An opportunity to ask questions regarding the treatment plan was provided. All questions were answered. The patient expressed understanding and agreement with the above treatment plan. The patient is aware they should contact our office by phone for worsening of their current condition or the appearance of new urologic symptoms. Compliance is encouraged with any medications and followup testing that is ordered. It is a privilege to participate in the urologic care of your patient. If you have any questions or concerns regarding treatment for the above conditions, or other urologic issues, please do not hesitate to contact me. The office telephone contact is [phone]. This note is constructed using voice recognition software. While every effort has been made to ensure accuracy electro optical engineer errors may have been included. Yours sincerely, Dr Kailash Alvarez MD, [facility] - Urology Providers of Expert, Compassionate Care for the Genitourinary System Coding Level of Care Code Est Pt Level 3 (86505) Diagnoses BPH (benign prostatic hyperplasia) N40.0 Elevated PSA R97.20 Urinary retention with incomplete bladder emptying R33.9 Overactive bladder N32.81 Urinary incontinence R32 CPT Codes Post Residual Void - PVR CPT Code: 35483-Pncn Void Residual by ultrasound ([id number])
== END 2023-09-08 14:20 | disposition home or self-care (01) ==
PROVIDERS: PCP Family Medicine; Visit Provider Urology
DX: N40.0 Benign prostatic hyperplasia without lower urinary tract symptoms (principal); R97.20 Elevated prostate specific antigen [PSA]; R33.9 Retention of urine, unspecified; N32.81 Overactive bladder; R32 Unspecified urinary incontinence
CPT/HCPCS: 99213

== ENCOUNTER → 2023-09-08 13:31 | Outpatient (BNVA) | payer MEDICARE, MEDICAID, SELFPAY | PROVIDERS: PCP Family Medicine; Visit Provider Urology | DX: N40.0 Benign prostatic hyperplasia without lower urinary tract symptoms (principal); N32.81 Overactive bladder; R97.20 Elevated prostate specific antigen [PSA]; R33.9 Retention of urine, unspecified; R32 Unspecified urinary incontinence | CPT/HCPCS: 51798; 99212 ==

== ENCOUNTER 2024-03-07 11:39 | Outpatient (AMB) | payer MEDICARE, MEDICAID, SELFPAY ==
--- NOTE | 2024-03-07 11:48 | A.OFFVIS_ITS ---
Intake Visit Reasons: 6m follow up Intake Note: Patient presents today for follow up on: Retention, BPH, OAB, and Elevated PSA Urology Med: Gemtesa, Finasteride, Terazosin, Tadalafil Antibiotic Allergy: Penicillins, Vancomycin, and Doxycycline Blood Thinner: None Todays PVR: 140ml's Party Plan Sales Unit Sales Leader Required: No Allergies Penicillins [PENICILLINS] Allergy (Severe, Verified 03/07/24 12:22) ANAPHYLAXIS gabapentin [GABAPENTIN] Allergy (Intermediate, Verified 03/07/24 12:22) RASH lamotrigine [From LAMICTAL] Allergy (Intermediate, Verified 03/07/24 12:22) RASH vancomycin [VANCOMYCIN] Allergy (Intermediate, Verified 03/07/24 12:22) NAUSEA & VOMITING doxycycline [DOXYCYCLINE] Adverse Reaction (Severe, Verified 03/07/24 12:22) DIARRHEA Medication List - Last Reconciled 03/07/24 by JOCY Tian-MAGALIE atorvastatin 20 mg PO DAILY baclofen 20 mg PO TID bupropion HCl XL 300 mg PO QAM bupropion HCl XL 150 mg PO QAM cetirizine 10 mg PO BID cholecalciferol (vitamin D3) 25 mcg PO DAILY ciclopirox 0.77% appl topical clonazepam 0.5 mg PO DAILY PRN docusate sodium 100 mg PO DAILY epinephrine 0.3 mg IM finasteride 5 mg PO DAILY 90 days fluconazole mg PO fluocinonide 0.05% appl topical fluticasone propionate 50 mcg/actuation 2 sprays intranasal DAILY furosemide 60 mg PO DAILY griseofulvin microsize 500 mg PO DAILY hydrocortisone 2.5% topical BID PRN ketotifen fumarate 0.025%(0.035%) 1 drp ophthalmic (eye) BID lisdexamfetamine (Vyvanse) 70 mg PO QAM lisinopril 40 mg PO DAILY meloxicam 15 mg PO DAILY PRN metoprolol tartrate 12.5 mg PO BID minocycline 50 mg PO BID multivitamin 1 tab PO DAILY omeprazole 20 mg PO DAILY prednisolone acetate 1% 1 drp ophthalmic (eye) BID pregabalin 300 mg PO BID psyllium husk (with sugar) 3.4 gram/7 gram (Wal-Mucil Fiber (sugar)) PO quetiapine 50 - 100 mg PO BEDTIME PRN selenium sulfide 2.5% mL topical BID terazosin 5 mg PO BEDTIME 90 days vibegron (Gemtesa) 75 mg PO DAILY vortioxetine (Trintellix) 20 mg PO QAM HPI Comments Details: Ash is a pleasant 68-year-old male patient of Dr. Gray. He has a past medical history of vitamin-D deficiency, constipation, bilateral lower leg edema, herniation of lumbar intervertebral disc with radiculopathy, hypertension, glaucoma, and hernia. He presents to the office today for follow- up of his erectile dysfunction, BPH, overactive bladder and elevated PSA. In discussion with the patient today he reports to be doing and feeling well. Reports compliance with finasteride, terazosin, and Gemtesa as prescribed. In office urinalysis results reviewed with the patient today. PVR 140 mL. He reports feeling episodes of urinary urgency and frequency he had been experiencing have improved however he does note episodes of urinary hesitancy however describes these episodes as infrequent. He otherwise denies any bothersome urinary issues. He denies hematuria, dysuria, foul smelling urine, flank pain, fever, and or chills. He is happy with his current voiding parameters. He has previously trialed Myrbetriq and tamsulosin without improvement. PSAs are as follows: 06/21 17.9, 06/21 2.3, 08/21 1.0, 09/21 0.4 Patient with a previous history of in office cystoscopy 12/20 noting small prostate with open neck. He also previously trialed injection therapy for his longstanding history of erectile dysfunction and found this treatment option helpful however had issues with cost therefore he was trialed daily high dose tadalafil with Dr. Alvarez and feels this has also been helpful. He otherwise of fers no other issues or concerns at this time. [facility] Medical History Incontinence Vitamin D deficiency Constipation History of colon polyps Bilateral leg edema UTI (urinary tract infection) Herniation of lumbar intervertebral disc with radiculopathy Initial high blood pressure determined by examination Glaucoma Dry eyes Hernia of abdominal cavity Surgical History S/P lumbar spinal fusion Hx of inguinal hernia surgery History of lumbar laminectomy H/O knee surgery H/O hand surgery Hx of colonoscopy H/O angioplasty S/P cardiac cath Status post lumbar spine surgery for decompression of spinal cord Hx of tonsillectomy Social History Alcohol intake: current Patient Tobacco Use Status: Former Tobacco user Tobacco use type: Cigarette Cigarette Packs Per Day: 0.30 Years Smoked: 44 e-Cigarette/Vaping Use: Never Used Review of Systems Const Reports no additional complaints Eyes Reports as per HPI ENT Reports no additional complaints Card Reports as per HPI Resp Reports no additional complaints GI Reports as per HPI Reports as per HPI Musc Reports as per HPI Neuro Reports no additional complaints Psych Reports no additional complaints Endo Reports no additional complaints Physical Exam Const General: cooperative, healthy appearing, comfortable, no acute distress, well developed, alert and awake Orientation/consciousness: patient oriented x3 HEENT Head: Yes normal to inspection, Yes normocephalic and Yes atraumatic Ears: hearing grossly normal bilaterally Eyes General: appearance normal, both eyes and all related structures Neck Neck: Yes normal visual inspection and Yes trachea midline Chest Chest palpation & inspection: normal inspection of the chest Resp Effort & Inspection: normal respiratory effort and able to speak in complete sentences Cardio Rate: regular rate GI Inspection: Yes normal to inspection General: Yes no CVA tenderness Back/Spine/Pelvis Back: no CVA tenderness Skin General skin exam: no rashes or lesions noted Neuro General: patient oriented x3 Extrem General: Yes normal to inspection Psych Appearance: grossly normal and well kempt Mental Status: mental status grossly normal Speech and movement: Normal speech and movement present and Clear speech present Affect: normal affect Attitude: cooperative Thought process: Normal thought process present Thought content: Normal thought content present Insight: Fair insight present (Psych) Judgement: Fair judgement present (Psych) Office Procedures Post Void Residual Post Residual Void Post Void Residual (PVR): 140 [id number] Void Residual by ultrasound Results AMB Urinalysis, Automated UA Leukoctes 0 Deidra/uL Last Edit by Presley Malone on 03/07/24 17:07 UA Nitrite Last Edit by Brandyce Bress on 03/07/24 17:07 UA Urobilinogen 0.2 mg/dL Last Edit by Brandyce Bress on 03/07/24 17:07 UA Protein 0 mg/dL Last Edit by Brandyce Bress on 03/07/24 17:07 UA pH 5.5 Last Edit by Brandyce Bress on 03/07/24 17:07 UA Blood 0 Alber/uL Last Edit by Brandyce Bress on 03/07/24 17:07 UA Specific [place] 1.015 Last Edit by Brandyce Bress on 03/07/24 17:07 UA Ketone Last Edit by Brandyce Bress on 03/07/24 17:07 UA Bilirubin 0 mg/dL Last Edit by Brandyce Bress on 03/07/24 17:07 UA Glucose 500 mg/dL Last Edit by Brandyce Bress on 03/07/24 17:07 Results Reviewed Results Reviewed: Laboratory Last Values Urine pH (Auto) 5.5 03/07/24 17:06 Specific [place] (Auto) 1.015 03/07/24 17:06 Urine Protein (Auto) 0 mg/dL 03/07/24 17:06 Glucose (UA)(Auto) 500 mg/dL 03/07/24 17:06 Urine Blood (Auto) 0 Alber/uL 03/07/24 17:06 Urine Bilirubin (Auto) 0 mg/dL 03/07/24 17:06 Urine Urobilinogen (Auto) 0.2 mg/dL 03/07/24 17:06 Leukocyte Esterase (Auto) 0 Deidra/uL 03/07/24 17:06 Assessment & Plan Assessment & Plan (1) BPH (benign prostatic hyperplasia): Code(s): N40.0 - Benign prostatic hyperplasia without lower urinary tract symptoms Category: Medical (2) Elevated PSA: Code(s): R97.20 - Elevated prostate specific antigen [PSA] Category: Medical (3) Urinary retention with incomplete bladder emptying: Code(s): R33.9 - Retention of urine, unspecified Category: Medical (4) Overactive bladder: Code(s): N32.81 - Overactive bladder Category: Medical (5) Erectile dysfunction: Code(s): N52.9 - Male erectile dysfunction, unspecified Category: Medical (6) BPH w urinary obs/LUTS: Code(s): N40.1 - Benign prostatic hyperplasia with lower urinary tract symptoms; N13.8 - Other obstructive and reflux uropathy Category: Medical Plan In office urinalysis results reviewed with the patient today; as noted above. PVR 140 mL. Discussed obtaining PSA for further assessment evaluation. Patient reports be happy with current voiding parameters on Gemtesa, finasteride, and terazosin as prescribed; will continue. Discussed importance of weight loss in relation to lower urinary tract symptoms as well as overall health and well-being. Follow-up in 6 months with PSA and PVR; or sooner with any issues, concerns, and or questions. Orders: Orders AMB Post Void Residual by ultrasound Today N13.8 - Other obstructive and reflux uropathy, N40.1 - Benign prostatic hyperplasia with lower urinary tract symptoms Prostate Specific Antigen Today N40.0 - Benign prostatic hyperplasia without lower urinary tract symptoms AMB Urinalysis Automated Today Z13.9 - Encounter for screening, unspecified Patient Instructions: The patient had an opportunity to ask questions regarding the treatment plan. All questions were answered. Physical exam, labs, and imaging were discussed and reviewed in detail. As well as risks, benefits, and discussion of treatment choices. No major barriers to understanding were identified. The patient expressed understanding and agreement with the above treatment plan. The patient was made aware they should contact our office by phone for worsening of their current condition, the appearance of new symptoms, or with any questions or concerns. Compliance is encouraged with any medications and follow up testing that is ordered. It is a privilege to be allowed the opportunity to participate in? your urological care.? Again, if you have any questions or concerns If you have any questions or concerns please do not hesitate to contact me. The office is [phone]. This note is constructed using voice recognition software. While every effort has been made to ensure accuracy senior systems programmer errors may have been included. Yours sincerely, ADIS Tian Coding Level of Care Code Est Pt Level 3 (19691) Complex EM visit Add On G2211 Diagnoses BPH (benign prostatic hyperplasia) N40.0 Elevated PSA R97.20 Urinary retention with incomplete bladder emptying R33.9 Overactive bladder N32.81 Erectile dysfunction N52.9 BPH w urinary obs/LUTS N40.1; N13.8 CPT Codes Post Residual Void - PVR CPT Code: [id number]-[id number] Void Residual by ultrasound ([id number])
== END 2024-03-07 12:26 | disposition home or self-care (01) ==
PROVIDERS: PCP Family Medicine; Visit Provider Nurse Practitioner Family
DX: N40.0 Benign prostatic hyperplasia without lower urinary tract symptoms (principal); R97.20 Elevated prostate specific antigen [PSA]; R33.9 Retention of urine, unspecified; N32.81 Overactive bladder; N52.9 Male erectile dysfunction, unspecified; N40.1 Benign prostatic hyperplasia with lower urinary tract symptoms; N13.8 Other obstructive and reflux uropathy; Z13.9 Encounter for screening, unspecified
CPT/HCPCS: 99213; G2211

== ENCOUNTER → 2024-03-07 11:39 | Outpatient (BNVA) | payer MEDICARE, MEDICAID, SELFPAY | PROVIDERS: PCP Family Medicine; Visit Provider Nurse Practitioner Family | DX: N40.1 Benign prostatic hyperplasia with lower urinary tract symptoms (principal); R33.9 Retention of urine, unspecified; N32.81 Overactive bladder; N52.9 Male erectile dysfunction, unspecified; N13.8 Other obstructive and reflux uropathy; R97.20 Elevated prostate specific antigen [PSA] | CPT/HCPCS: 51798; 81003; 99212 ==

== ENCOUNTER 2024-08-26 14:17 | Outpatient (REF) | payer MEDICARE, MEDICAID, SELFPAY ==
[2024-08-26 14:36] LABS: MANUAL DIFF FLAG NO
--- OUTSIDE RECORDS SUMMARY | 2024-08-26 14:45 | XMS_ITS | Patient Health Record ---
Author Organization [facility] Address [address] [place] [address] Care Team Providers Care Air Deodorizer Servicer Name Role Phone Tamica Loaiza Primary Care Provider ISA Alonso [phone] Blanco Farias MD Unavailable Reason For Referral No Information Problems Problem Type SNOMED Code ICD Code Onset Dates Problem Status W/U Status Risk Notes Problem Chronic kidney disease, stage 3a (N18.31) Active confirmed Encounters Encounter Location Date Provider Diagnosis [facility] [address] [place] [phone] 10/08/2023 ISA PIMENTEL Chronic kidney disease, stage 3a N18.31 [facility] [address] [place] [address] 08/27/2023 ISA PIMENTEL [facility] [address] [place] [phone] 08/27/2023 ISA PIMENTEL [facility] [address] [place] [phone] 08/27/2023 ISA PIMENTEL [facility] [address] [place] [address] 09/09/2023 ISA PIMENTEL [facility] [address] [place] [phone] 09/25/2023 ISA PIMENTEL [facility] [address] [place] [phone] 10/08/2023 ISA PIMENTEL [facility] [address] [place] [phone] 11/17/2023 ISA PIMENTEL [facility] [address] [place] [address] 02/15/2024 ISA Schmidt [facility] [address] [place] [address] 02/16/2024 ISA Schmidt [facility] [address] [place] [address] 03/28/2024 ISA Schmidt [facility] [address] [place] [address] 08/03/2024 ISA PIMENTEL Assessments Encounter Date Diagnosis (ICD Code) Assessment Notes Treatment Notes Treatment Clinical Notes Section Notes 10/08/2023 Chronic kidney disease, stage 3a (ICD-10 - N18.31) We spent the first part of our discussion talking about [employer] and our goals. I emphasized that we focus on education and support for patients with kidney issues by connecting them with our navigators, who have personal and family experience with kidney disease. I explained that while we will discuss the status of his/her kidneys, nothing we are doing is a substitute for visits to nephrology and/or primary care physician. 1. CKD 3a. He sees Dr. Farias. Cause is uncertain. RFs noted are prior GEOVANNY (which seems to have been from obstructive uropathy -- as he left hospital with a bladder catheter), KRISTEN, and prior NSAID use. Fortunately GFR has been rising steadily since that Oct 2022 hospitalization. He is on jardiance. He is compliant with his CPAP. He no longer smokes. He is following a low salt diet. We talked today specifically about increase fruits/vegetable s and reducing animal protein. 2. Kidney Failure Risk: another UACR is planned. His risk was low using prior value. 3. Kidney transplant candidacy: His kidney transplant candidacy is uncertain due to lack of social support, ongoing mental health challenges, and cardiac issues. Fortunately GFR is now nearly > 60 so we will hope ESRD does not become an issue. He did have a GFR < 20 during an episode of GEOVANNY but given his other issues and the significant improvement in renal function, I don't think transplant centers would consider him for listing. 4. ECF Volume overload: Cardiac echo planned. Fluid accumulation does seem out of proportion to his degree of CKD so looking for other causes makes sense. Our education and discussion will focus on: The importance of monitoring kidney function: GFR and Urine Albumin Creatinine Ratio Preventing progression of kidney disease through diet, and avoidance of nephrotoxins like IV contrast dye and other stressors such as dehydration that can cause Acute kidney injury Acidosis Management: keeping CO2 > 20-21 with plant based eating, Bicarbonate supplementation. Use of medications,on the basis of reduced GFR Importance of ongoing exercise Importance of regular follow up with primary ribbon hanking machine operator AND HIS UROLOGIST -- given apparent prior obstructive uropathy. Should renal function deteriorate, we can expand our discussion to: Transplant as a method of treating kidney failure vs living donor transplant Techniques to reduce waiting time: (1) Living donor search; (2) acceptance of KDPI >85% kidneys; (3) acceptance of HCV+ kidneys; (4) listing out of region. Postponing dialysis Pro's and con's of different forms of dialysis Indications to start dialysis Avoiding crash dialysis Incremental dialysis: twice a week vs three times per week Importance of preserving renal function even after dialysis starts Conservative management of advanced CKD, without dialysis Value of Support Groups Isa Pimentel MD Plan Of Treatment No Information Insurance Providers Payer Name Payer Address Payer Phone Subscriber Number Group Number Insured Name Patient Relationship to Insured Coverage Start Date Coverage End Date [facility] Medicare [employer]age [id number] [place] [address] [id number] Self - patient is the insured
[2024-08-26 15:05] LABS: Basophils Absolute Auto 0.1 X10*3/uL (0.0-0.2); Basophils Percent Auto 1.3 % (0-2); Eosinophils Absolute Auto 0.1 X10*3/uL (0.0-0.4); Eosinophils Percent Auto 2.5 % (0-4); Hematocrit 45.7 % (42.0-52.0); Hemoglobin 15.8 g/dl (14.0-18.0); Imm Gran Abs Auto 0.01 X10*3/uL (0.00-0.03); Imm Gran Pct Auto 0.2 % (0.0-0.4); Lymphocytes Absolute Auto 1.7 X10*3/uL (1.2-4.9); Lymphocytes Percent Auto 37.9 % (20-40); Mean Corpuscular HGB Conc 34.6 g/dl (31.0-36.0); Mean Corpuscular Hemoglobin 28.9 pg (27.0-33.0); Mean Corpuscular Volume 83.7 fL (80.0-98.0); Mean Platelet Volume 10.7 fL (9.4-12.4); Monocytes Absolute Auto 0.4 X10*3/uL (0.1-1.2); Monocytes Percent Auto 8.3 % (2-11); Neutrophils Absolute Auto 2.2 x10*3/uL (2.0-8.3); Neutrophils Percent Auto 49.8 % (45-73); Platelet Count 151 X10*3/uL (160-400); Red Blood Count 5.46 X10*6/uL (4.60-5.80); Red Cell Distribution Width 13.2 % (11.0-16.0); White Blood Count 4.5 X10*3/uL (4.8-10.8)
[2024-08-26 15:31] LABS: Creatinine Urine 58.37 mg/dL; Microalbumin Urine < 5.0 mg/L; Total Protein Urine Random < 7 mg/dL (<12)
[2024-08-26 15:35] LABS: Anion Gap 13 (12-20); Blood Urea Nitrogen 11 mg/dL (9-16); Calcium 9.1 mg/dL (8.4-10.2); Carbon Dioxide 27 mmol/L (22-29); Chloride 107 mmol/L (96-108); Estimated Glomerular Filt Rate 57; Magnesium 2.3 mg/dL (1.6-2.6); Potassium 3.6 mmol/L (3.3-5.1); Sodium 143 mmol/L (135-145)
[2024-08-26 16:10] LABS: Vitamin D 25-OH Total 52.8 ng/mL (>30)
== END 2024-08-26 14:18 | disposition home or self-care (01) ==
LOC: HO.LAB 14:17
PROVIDERS: Visit Provider Internal Medicine Nephrology
DX: I10 Essential (primary) hypertension (principal); N18.31 Chronic kidney disease, stage 3a; R60.0 Localized edema
CPT/HCPCS: 36415; 80051; 82043; 82306; 82310; 82565; 82570; 83735; 83970; 84156; 84520; 85025

== ENCOUNTER 2024-08-29 12:45 | Outpatient (REF) | payer MEDICARE, MEDICAID, SELFPAY ==
--- OUTSIDE RECORDS SUMMARY | 2024-08-29 13:10 | XMS_ITS | Encounter Summary ---
Author Organization [facility] Address [address] [phone] Phone Care Team Providers Care Tile Roofer Name Role Phone Tamica Loaiza Primary Care Provider [phone] Encounter Details Date Type Department Care Team (Late Contact Info) Description 08/28/2024 Orders Only [facility] [address] [phone] [place] [facility] [address] [phone] Stage 3a chronic kidney disease (HCC); Hypertensive disorder; Bilateral lower limb edema Social History Tobacco Use Types Packs/Day Years Used Date Smoking Tobacco: Former Cigarettes Smokeless Tobacco: Never Alcohol Use Standard Drinks/Week Comments Yes 0 (1 standard drink = 0.6 oz pur e alcohol) Sex and Gender Information Value Date Recorded Sex Assigned at Not on file Legal Sex Male 9:24 AM EDT Gender Identity Not on file Sexual Orientation Not on file documented as of this encounter Plan of Treatment Upcoming Encounters Date Type Department Care Team (Late Contact Info) Description 09/14/2024 1:45 PM EDT Office Visit [facility] [address] [phone] Blanco Farias MD [address] [address] documented as of this encounter Visit Diagnoses Diagnosis Stage 3a chronic kidney disease (HCC) Hypertensive disorder Bilateral lower limb edema documented in this encounter Care Teams Tile Roofer Relationship Specialty Start Date End Date Tamica Loaiza [address] [place] [address] PCP - General Internal Medicine 03/17/24 documented as of this encounter
--- OUTSIDE RECORDS SUMMARY | 2024-08-29 13:10 | XMS_ITS | Clinical Summary ---
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 Arc Name Role Phone Tamica Loaiza DO Primary Care Provider [phone] Allergies Active Allergy Reactions Criticality Noted Date Comments Allopurinol 02/09/2023 Other Reaction(s): Rash/Dermatitis Doxycycline Diarrhea 10/27/2017 Gabapentin 10/03/2016 Other Reaction(s): Rash/Dermatitis Lamotrigine High 01/07/2013 Other Reaction(s): Rash/Dermatitis Penicillins Anaphylaxis High 05/21/2009 Medications albuterol HFA (PROAIR HFA ; PROVENTIL HFA ; VENTOLIN HFA) 90 mcg/actuation inhaler INHALE 2 PUFFS BY MOUTH EVERY 6 HOURS NEEDED FOR COUGH OR WHEEZING 09/02/19 24 Active biotin 5,000 mcg tablet, sublingual Place under the tongue. Active clonazePAM (KlonoPIN) 0.5 mg tablet Take 0.5 mg by mouth daily. Active diclofenac (VOLTAREN) 1 % topical gel Apply 4 g topically 4 times daily as needed (pain in hands). 02/10/20 23 Active docusate sodium (COLACE) 100 mg capsule Take 1 Capsule by mouth 2 times daily. 07/17/19 24 Active EPINEPHrine (EpiPen 2-Andrea) 0.3 mg/0.3 mL injection Inject 0.3 mg into the muscle as needed for Other (anaphylactic reaction). 2-pack. Fill with whichever brand is covered by insurance. 03/24/19 Active finasteride (PROSCAR) 5 mg tablet Take 5 mg by mouth daily. 10/18/19 Active furosemide (LASIX) 40 mg tablet Take 1 Tablet by mouth daily. 07/31/19 Active psyllium (Daily Fiber, psyllium-aspart ,) 3.4 gram packet Take 1 Packet by mouth daily. 07/17/19 Active QUEtiapine (SEROquel) 50 mg tablet Take 2 Tablets by mouth daily. 03/09/19 Active tadalafiL (CIALIS) 10 mg tablet Take 1 tablet by mouth daily as needed. 10/22/19 Active terazosin (HYTRIN) 5 mg capsule Take 1 Capsule by mouth daily. 01/15/20 Active topiramate (TOPAMAX) 50 mg tablet Take 1 Tablet by mouth daily. 09/13/19 Active turmeric root extract 500 mg capsule Take 1 capsule by mouth daily. 02/23/20 Active valACYclovir (VALTREX) 500 mg tablet daily as needed. 03/01/20 Active vortioxetine (Trintellix) 20 mg tablet Take 20 mg by mouth daily. 05/25/19 Active lisdexamfetamin e (Vyvanse) 70 mg capsule Take 70 mg by mouth daily. 11/30/19 Active miscellaneous medical supply misc 12 cm at bedtime. Via nasal mask, BHI&R Active furosemide (LASIX) 20 mg tablet Take 1 Tablet by mouth daily Active Ingrezza 80 mg capsule Take 80 mg by mouth 1 (one) time each day. 03/07/19 Active amantadine (SYMMETREL) 100 mg tablet Take 1 tablet (100 mg total) by mouth 2 (two) times a day. 03/21/19 25 Active cetirizine (ZyrTEC) 10 mg tablet Take 1 tablet (10 mg total) by mouth 1 (one) time each day. 90 tablet 1 05/04/19 25 Active metoprolol succinate (TOPROL-XL) 25 mg 24 hr tablet Take 1 tablet (25 mg total) by mouth 1 (one) time each day. Do not crush or chew. 90 each 3 05/19/19 25 Active atorvastatin (LIPITOR) 20 mg tablet TAKE 1 TABLET BY MOUTH DAILY 90 tablet 1 06/07/19 25 Active losartan (COZAAR) 25 mg tablet TAKE 1 TABLET BY MOUTH DAILY 90 tablet 1 06/22/19 25 Active Jardiance 10 mg tablet TAKE 1 TABLET BY MOUTH DAILY IN THE MORNING 90 tablet 1 07/09/19 25 Active cholecalciferol (VITAMIN D-3) 25 mcg (1,000 unit) tablet TAKE 1 TABLET BY MOUTH EVERY DAY 90 tablet 1 07/09/19 25 Active baclofen (LIORESAL) 20 mg tabletIndicatio ns:Chronic midline low back pain with sciatica, sciatica laterality unspecified TAKE 1 TABLET(20 MG) BY MOUTH THREE TIMES DAILY 270 tablet 07/29/19 25 Active pregabalin (LYRICA) 225 mg capsule TAKE 1 CAPSULE(225 MG) BY MOUTH DAILY AT BEDTIME. MAX DAILY AMOUNT: 225 MG 30 capsule 2 07/29/19 25 Active fluticasone propionate (FLONASE) 50 mcg/actuation nasal spray USE 2 SPRAYS IN EACH NOSTRIL ONCE DAILY. SHAKE LIQUID 16 g 5 07/30/19 25 Active omeprazole (PriLOSEC) [address] capsule Take 1 capsule (20 mg total) by mouth 1 (one) time each day. Do not crush or chew. 90 capsule 1 07/30/19 25 Active colchicine (COLCRYS) 0.6 mg tablet TAKE 1 TABLET BY MOUTH DAILY 30 tablet 2 08/25/19 25 Active multivitamin-mi q-vxen-TK-vit K (Adults Multivitamin) 18 mg iron-400 mcg-25 mcg tablet TAKE 1 TABLET BY MOUTH DAILY 90 each 1 08/25/19 25 Active multivitamin-mi y-rkne-RT-vit K (Adults Multivitamin) 18 mg iron-400 mcg-25 mcg tablet Take 1 tablet by mouth 1 (one) time each day. 90 each 1 02/01/20 24 025 Discontinued colchicine (COLCRYS) 0.6 mg tablet TAKE 1 TABLET BY MOUTH DAILY 30 tablet 06/30/19 25 025 Discontinued Active Problems Problem Noted Date Diagnosed Date SOB (shortness of breath) 12/04/2023 Leg swelling 12/04/2023 Chronic diastolic (congestiv e) heart failure (CMS/HCC V24, [facility] V28) 12/04/2023 Localized edema 12/04/2023 Post-traumatic osteoarthritis of right knee 04/30 Primary osteoarthritis of left knee 05/14/2023 Stage 3a chronic kidney dise ase (CKD) ([facility] V24, [facility] V28) 08/21/2021 (HFpEF) heart failure with p reserved ejection fraction ([facility] V24, [facility] V28) 03/06/2021 Overview (12/04/2023): HFpEF with G1DD on TTE from 02/27/21 EF 60-65% Last Assessment & Plan: Preserved left ventricular systolic function without evidence of elevated filling pressure. Stable. Will continue current regimen. Assessment & Plan (05/18/2024 1:43 PM EDT): Patient has a history of HFpEF, echocardiogram from January 2024 shows normal systolic function with EF 55-60%. Patient appears euvolemic on physical exam. I will switch Lopressor to Toprol XL in an effort to streamline medications and follow GDMT. Continue with Jardiance, losartan and furosemide as prescribed. Patient is encouraged to follow a low-sodium, heart healthy diet, monitor daily weights and contact provider with any sudden increases such as 2 lbs overnight or 4-5 lbs over the course of a week, and/or for worsening shortness of breath and/or increased lower extremity edema. Hyperlipidemia 10/12/2020 Assessment & Plan (05/18/2024 1:44 PM EDT): Last lipid panel reviewed and under excellent control. Continue atorvastatin as prescribed. Class 1 obesity 05/31/2018 Assessment & Plan (05/18/2024 1:44 PM EDT): Patient is overweight. Approaches towards weight loss are discussed, including burning more calories than one takes in by portion control and regular exercise with an emphasis on duration rather than intensity. Primary osteoarthritis of both knees 03/09/2018 Cortical cataract of both eyes 01/12/2018 Chronic non-seasonal allergic rhinitis 8 Anal sphincter incompetence 12/03/2016 Paresthesia and pain of both upper extremities 0 09/10/2016 Overview (12/04/2023): Normal EMG Herniation of lumbar intervertebral disc with ra diculopathy 07/14/2016 Recurrent genital herpes 02/29/2016 Fibromyalgia 03/08/2014 Obesity 11/25/2011 Elevated PSA 07/30/2010 Overview (12/04/2023): Urology (Dr. Beltran) - 10/13/05 - prostate biopsy secondary to a PSA of 6.6 in 07/05, negative for malignancy 08/10 - PSA elevation, biopsy normal PSA elevated in Dec 2020, but repeat normal. Constipation 06/26/2010 Testosterone deficiency 06/15/2009 Depression 05/21/2009 Overview (12/04/2023): Harmeet Bolton at [facility] [phone] ED (erectile dysfunction) 05/21/2009 Overview (12/04/2023): Failed oral meds. Bimix 01/11 GERD (gastroesophageal reflux disease) 0 HTN (hypertension) 05/21/2009 Overview (12/04/2023): Last Assessment & Plan: Well-controlled. Assessment & Plan (05/18/2024 1:37 PM EDT): Blood pressure is well-controlled in the office today at 120/79. Continue with losartan, terazosin, furosemide and Toprol XL as prescribed. Incontinence 05/21/2009 Overview (12/04/2023): Seen by [facility] on 01/09/21 with nl cystoscopy. Had trialed terazosin 10mg daily, flomax with ongoing urgency. Recommended tolterodine 2mg daily Lumbago with sciatica 05/21/2009 Overview (12/04/2023): [facility] managing pain meds. He has seen Dr Sorto. Some CS injections in past (~ 20 in number). [facility]/2016 for LILLY Planning for L4-5 discectomy with NS, Dr. Glover Obstructive sleep apnea 05/21/2009 Overview (12/04/2023): On CPAP device ~ 2003 [facility] Split Night Polysomnogram Date 08/31/2011. Without PAP: SE 36 % SM 38 %; REM 0 % of this phase. RDI 77 (AHI 77), Central apneas 0; Obstructive apneas 28; Mixed apneas 1; hypopneas 39; RERAs 0; average oxygen saturation 94% (lowest 84%); PLMs 0. With PAP: SE 89 % SM 92 %; REM 38 % of this phase. On CPAP @ 12; RDI 0.5 (AHI 0.5), Central apneas 1; Obstructive apneas 0; Mixed apneas 0; hypopneas 0; RERAs 0; and, average oxygen saturation was 95%; PLMs ~3. [facility] Home Polysomnogram: Date 03/04/2018; AHI 54, Unclassified apneas 0; Obstructive apneas 205; Central apneas 0; Mixed apneas 0; hypopneas 249; average oxygen saturation 89% (lowest 40% with saturations <88% for 5% or more of study). Oxygen saturations levels were questioned on the final report. [facility] Polysomnogram treatment study. Date 05/22/2018. SE 67 % SM 84 %; spent 10 % of the study in REM. On CPAP @ 10; RDI 2.4 (AHI 0), Central apneas 0; Obstructive apneas 0; Mixed apneas 0; hypopneas 0; RERAs 1; and, average oxygen saturation was 94%. For the entire study, PLMs ~0. - Obstructive Sleep Apnea - severe; mostly hypopneas and obstructive apneas; with sleep related hypoventilation by 2019 home polysomnogram. - 05/22/2018 Pre-study ESS 9. 2/4 RLS symptoms. - CPAP @ 10 corrective. Vitamin D deficiency 05/21/2009 Encounters Date Type Department Care Team Description 08/24/2024 Telephone Internal Medicine - [facility] [address] [place] [address] Tamica Loaiza DO Error from Last 3 Months Immunizations Name Administration Dates Next Due Influenza Quadravalent, MDCK , 0.5ml, preservative free (Flucelvax) 6mo and older 01/15/2018 Influenza trivalent, 0.5mL ( Fluzone High-dose) 65yo and older 11/11/2022,11/30/2020 Influenza trivalent, with pr eservative (Fluzone; Afluria) 6mo and older 12/08/2021,11/15/2019,10/25/2018,11/07,10/31/2016,12/21/2015,12/14/2014 ,05/01/2014,11/04/2012,12/31/2011,04/2009 Influenza, Unspecified 12/08/2021 Pneumococcal conjugate 13 va lent (Prevnar 13, PCV13) 2mo and older 12/08/2018 Pneumococcal polysaccharide 23 valent (Pneumovax 23) 2yo and older 01/30/2021,08/12/2007 Tdap Tetanus diptheria acell ular pertussis (Boostrix; Adacel) 7yo and older 02/01/2016,03/02/2008 Zoster Live 12/23/2014 Zoster recombinant (Shingrix ) 19yo and older 12/08/2021 Surgical History Surgery Date Site/Laterality Comments HERNIA REPAIR 1975 PROCEDURE: REPAIR INGUINAL HERNIA; COMMENT: bilat HAND SURGERY PROCEDURE: HISTORICAL HAND SURGERY; COMMENT: tendon repair left hand - laceration (left) TONSILLECTOMY PROCEDURE: HISTORICAL TONSILLECTOMY OTHER SURGICAL HISTORY PROCEDURE: ---- HEMORRHOIDS ----; COMMENT: recurrent ops, 02/06/[address] Rodgers at [facility] MOUTH SURGERY PROCEDURE: ORAL SURGERY PROCEDURE HAND SURGERY PROCEDURE: HISTORICAL HAND SURGERY; COMMENT: right - bone cyst KNEE SURGERY Right PROCEDURE: HISTORICAL KNEE SURGERY; COMMENT: arthroscopic COLONOSCOPY 08/2015 PROCEDURE: HISTORICAL COLONOSCOPY; COMMENT: hemorrhoids and polyp; repeat in 5 yrs. (5 mm polyp resected but lost.) COLONOSCOPY 07/22/2010 PROCEDURE: HISTORICAL COLONOSCOPY; COMMENT: Normal LUMBAR LAMINECTOMY 05/11/2019 PROCEDURE: HISTORICAL LUMB LAMINECTOMY; COMMENT: L2-3 laminectomy and fusion; Dr. 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 Bimix 01/11 Elevated PSA 07/30/2010 DX:Elevated PSA; COMMENT: Urology (Dr. Beltran) - 10/13/05 - prostate biopsy secondary to a PSA of 6.6 in 07/05, negative for malignancy 08/10 - PSA elevation, biopsy normal Fibromyalgia 03/08/2014 DX:Fibromyalgia GERD (gastroesophageal reflu x disease) 05/21/2009 DX:GERD (gastroesophageal re flux disease) Herniation of lumbar interve rtebral disc with radiculopathy 07/14/2016 DX:Herniation of lumbar intervertebral disc with radiculopathy HTN (hypertension) 05/21/2009 DX:HTN (hyper tension) Incontinence 05/21/2009 DX:Incontinence Lumbago with sciatica 05/21/2009 DX:Lumbago with sciatica; COMMENT: [facility] managing pain meds. He has seen Dr Sorto. Some CS injections in past (- 20 in number). [facility] 11/2016 for LILLY Planning for L4-[address] Belen WINN Obesity 11/25/2011 DX:Obesity Obstructive sleep apnea 05/21/2009 DX:Obstr uctive sleep apnea; COMMENT: On CPAP device - 2003 Paresthesia and pain of both upper extremities 09/10/2016 DX:Paresthesia and pain of b oth upper extremities; COMMENT: Normal EMG Recurrent genital herpes 02/29/2016 DX:Recu rrent genital herpes Testosterone deficiency 06/15/2009 DX:Testo sterone deficiency Vitamin D deficiency 05/21/2009 DX:Vitamin D deficiency History of colon polyps 03/11/2018 DX:Histo ry of colon polyps; COMMENT: 2016: Colonoscopy by Dr. Escoto, solitary 5 mm diminutive polyp resected but unable to be retrieved. Hyperlipidemia DX:Hyperlipidemi a Sickle cell trait (CMS/HCC V24) DX:Sickle cell trait ([facility]) Pneumonia DX:Pneumonia Bronchospasm DX:Bronchospasm Anxiety DX:Anxiety Weight loss DX:Weight loss Diabetes mellitus type 2, co ntrolled, with complications ([facility] [place] V24, [facility] [place] [place] V28) DX:Diabetes mellitus type 2, controlled, with complications ([facility]) Irritable bowel syndrome DX:Irri table bowel syndrome ADHD (attention deficit hype ractivity disorder) Arthritis CHF (congestive heart failur e) ([facility] [place] [place] V24, [facility] [place] V28) Chronic kidney disease Family History Medical History Relation Name Comments No Known Problems Brother 1 No Known Problems Brother 2 Other: other Daughter x2 unsure No Known Problems Half-Brother Other: Other Mother lung issues, un sure of what it was. Blindness Neg Hx Cataracts Neg Hx Coronary artery disease Neg Hx Diabetes Neg Hx Glaucoma Neg Hx Hypertension Neg Hx Macular degeneration Neg Hx Other cancer Neg Hx Strabismus Neg Hx Relation Name Status Comments Brother 1 Alive Brother 2 Alive Daughter x2 Alive Father Half-Brother Alive Mother Sister 3 half sisters 2ied Alive Social History Tobacco Use Types Packs/Day Years Used Date Smoking Tobacco: Former Cigarettes 0.6 80.3 0 11/03/1967 - 03/02/2011 Smokeless Tobacco: Never Comments:Stopped and started a few times before I quit for good. Alcohol Use Standard Drinks/Week Comments Yes 5 (1 standard drink = 0.6 oz pur e alcohol) Housing Instability Answer Date Recorde d Are you worried that in the next 2 months you may not have stable housing? No 04/26/2024 Food Access & Nutrition Answer Date Rec orded Do you have access to a vari ety of food including fruits and vegetables? Yes 04/26/2024 Access to Healthcare Answer Date Record ed Within the last 3 months, ho w many times did you visit the emergency department for your medical care? 0 04/26/2024 Health Literacy Answer Date Recorded How often do you need to hav e someone help you when you read instructions, pamphlets, or other written material from your doctor or pharmacy? Never 04/26/2024 Caregiver: How often do you need to have someone help you when you read instructions, pamphlets, or other written material from your doctor or pharmacy? Not on file 04/26/2024 Financial Risk Answer Date Recorded How hard is it for you to pa y for the very basics like food, housing, medical care, and air conditioning / heating? Not very hard 04/26/2024 Transportation Answer Date Recorded Has the lack of transportati on kept you from meetings, work, or from getting things needed for daily living? No Has the lack of transportati on kept you from medical appointments or from getting medications? No 04/26/2024 Social Isolation Answer Date Recorded How often do you feel lonely or isolated from th ose around you? Always 04/26/2024 Food Risk Answer Date Recorded Within the past 12 months we worried whether our food would run out before we got money to buy more. Never true 04/26/2024 Within the past 12 months th e food we bought just didn't last and we didn't have money to get more. Never true 04/26/2024 Dependent Care Answer Date Recorded Do you need help finding or paying for care for your loved ones. For example, children's choir director or elderly care for an older adult? No 04/26/2024 Education Answer Date Recorded Do you think completing more education or training, like finishing a GED, going to college, or learning a trade, would be helpful for you? No 04/26/2024 Employment and Income Answer Date Recor ded During the last four weeks, have you been actively looking for work? No 04/26/2024 Living Situation Answer Date Recorded What is your living situation? 0 04/26/2024 Sex and Gender Information Value Date Recorded Sex Assigned at Male 04/16/2024 12:52 PM EST Legal Sex Male 6:35 PM EST Gender Identity Male 04/16/2024 12:52 PM EST Sexual Orientation Straight 04/16/2024 12 :52 PM EST Obstetrics History Last Filed Vital Signs Vital Sign Reading Time Taken Comments Blood Pressure 120/79 05/18/2024 12:32 PM EDT Pulse 57 05/18/2024 12:32 PM EDT Temperature - - Respiratory Rate - - Oxygen Saturation 98% 05/18/2024 12:32 PM EDT Inhaled Oxygen Concentration - - Weight 89.8 kg (198 lb) 05/18/2024 12:32 PM EDT Height 167.6 cm (5' 6 ) 05/18/2024 12:32 PM EDT Body Mass Index 31.96 05/18/2024 12:32 PM EDT Plan of Treatment Upcoming Encounters Date Type Department Care Team (Late st Contact Info) Description 10/28/2024 2:15 PM EDT Office Visit Internal Medicine - [facility] [address] [place] [address] Edith LoaizamanaDO [address] [place] [address] 11/23/2024 1:10 PM EDT Office Visit [facility] [address] [place] [id number] Elsa Carr, HANNAH [address] [place] [id number] Health Maintenance Due Date Last Done Comments COVID-19 Vaccine (#1) 1960 RSV Immunization Adult Patients (1 - Risk 60-74 years 1-dose series) 2013 Lung Cancer Screening (Low Dose CT) 02/08/2022 Medicare Annual Wellness Visit 09/24/2024 09/25/2023 Hypertension/CHF/CAD Annual BMP Blood Test 09/29/2024 09/30/2023, 09/30/2023, 07/17/2023 Colorectal Cancer Screening: Colonoscopy 03/14/2025 03/14/2020 Depression Screening 04/26/2025 04/26/2024, 09/25/19 Social Influencers of Health Screening 04/26/2025 04/26/2024 Falls Risk Assessment 04/29/2025 04/29/2024 DTaP,Tdap,and Td Vaccines (3 - Td or Tdap) 01/31/2026 02/01/2016, 03/02/2008 Cholesterol Screening (Lipid Panel) 03/14/2029 03/14/2024, 08/15/2022 Hepatitis C Screening Completed 01/22/2021 Pneumococcal Vaccine: 50+ Years Completed 01/30/2021, 12/08/2018, 08/12/2007 Zoster Vaccines Completed 12/08/2021, 0810/2021, 12/23/2014 Influenza Vaccine Completed 12/16/2023, , 12/08/2021, Additional history exists Abdominal Aortic Aneurysm (AAA) Screen Completed 05/20/2024 HIB Vaccines Aged Out No longer eligi ble based on patient's age to complete this topic HPV Vaccines Aged Out No longer eligi ble based on patient's age to complete this topic Hepatitis A Vaccines Aged Out No long er eligible based on patient's age to complete this topic Hepatitis B Vaccines Aged Out No long er eligible based on patient's age to complete this topic IPV Vaccines Aged Out No longer eligi ble based on patient's age to complete this topic MMR Vaccines Aged Out No longer eligi ble based on patient's age to complete this topic Meningococcal ACWY Vaccine Aged Out N o longer eligible based on patient's age to complete this topic Meningococcal B Vaccine Aged Out No l onger eligible based on patient's age to complete this topic RSV Immunization Patients Under 20 months Aged Out No longer eligible based on patient's age to complete this topic Varicella Vaccines Aged Out No longer eligible based on patient's age to complete this topic Procedures Procedure Name Priority Date/Time Associated Diagnosis Comments ABDOMEN AORTIC ANEURYSM SCREENING Routine 05/20/2024 9:57 AM EDT Encounter for abdominal aortic aneurysm (AAA) screening LIPID PANEL WITH REFLEX TO DIRECT LDL Routine 03/14/2024 9:49 AM EST Screening for cholesterol level ANNUAL BMP BLOOD TEST Routine 09/30/2023 DEPRESSION SCREENING Routine 09/25/2023 HEPATITIS C SCREENING Routine 01/22/2021 COLONOSCOPY Routine 03/14/2020 from Last 3 Months or Most Recently Relevant to Health Maintenance Results * US Abdomen Aortic Aneurysm Screening (05/20/2024 9:57 AM EDT) Anatomical Region Laterality Modality Abdominal aorta Ultrasound 05/20/2024 11:2 2 AM EDT Impressions 05/20/2024 11:26 AM EDT No evidence of abdominal aortic aneurysm -------- FINAL REPORT -------- Dictated By: Eufemia Lund Dictated Date: 05/20/2024 11:22 ET Assigned Physician: Eufemia Lund Reviewed and Electronically Signed By: Eufemia Lund Signed Date: 05/20/2024 11:26 ET Workstation ID: [id number] Transcribed By: Self Edit Transcribed Date: 05/20/2024 11:22 ET Narrative 05/20/2024 11:26 AM EDT EXAM: Ultrasound evaluation of the abdominal aorta. HISTORY: AAA screening, smoking history (Age >= 50y) COMPARISON:CT abdomen and pelvis from 07/30/2023 Technique: Grayscale and Doppler images of the abdominal aorta and proximal common iliac arteries were obtained. FINDINGS: Proximal abdominal aorta measures 2.4 x 2.2 x 2.3 cm in caliber Mid abdominal aorta measures 1.5 x 1.8 x 1.5 cm in caliber Distal abdominal aorta measures 1.4 x 1.4 x 1.4 cm in caliber Left proximal common iliac artery measures 1.0 cm in caliber Right proximal common iliac artery measures 1.0 cm in caliber Procedure Note Eufemia Lund MD - 05/20/2024 EXAM: Ultrasound evaluation of the abdominal aorta. HISTORY: AAA screening, smoking history (Age >= 50y) COMPARISON:CT abdomen and pelvis from 07/30/2023 Technique: Grayscale and Doppler images of the abdominal aorta andproximal common iliac arteries were obtained. FINDINGS: Proximal abdominal aorta measures 2.4 x 2.2 x 2.3 cm in caliber Mid abdominal aorta measures 1.5 x 1.8 x 1.5 cm in caliber Distal abdominal aorta measures 1.4 x 1.4 x 1.4 cm in caliber Left proximal common iliac artery measures 1.0 cm in caliber Right proximal common iliac artery measures 1.0 cm in caliber IMPRESSION: No evidence of abdominal aortic aneurysm -------- FINAL REPORT -------- Dictated By: Eufemia uLnd Dictated Date: 05/20/2024 11:22 ET Assigned Physician: Eufemia Lund Reviewed and Electronically Signed By: Eufemia Lund Signed Date: 05/20/2024 11:26 ET Workstation ID: [id number] Transcribed By: Self Edit Transcribed Date: 05/20/2024 11:22 ET us Tamica Loaiza DO IM US PROCEDURES Final Result * Lipid panel with reflex to direct LDL (03/14/2024 9:49 AM EST) Cholesterol 122 0 - 200 mg/dL LAB CHEMISTRY METHOD 03/14/2024 4:18 PM EST [facility] Triglycerides 124 0 - 150 mg/dL LAB CHEMISTRY METHOD 03/14/2024 4:18 PM EST [facility] HDL 52 >=40 mg/dL LAB CHEMISTRY METHOD 03/14/2024 4:18 PM EST [facility] LDL Calculated 45 0 - 100 mg/dL LAB CHEMISTRY METHOD 03/14/2024 4:18 PM EST [facility] VLDL Cholesterol Sukumar 24.8 mg/dL LAB CHEMISTRY METHOD 03/14/2024 4:18 PM EST [facility] Non HDL Chol. (LDL+VLDL) 70 <145 mg/dL LAB CHEMISTRY METHOD 03/14/2024 4:18 PM EST [facility] [facility] Chol/HDL Ratio 2.3 0.0 - 4.4 LAB CHEMISTRY METHOD 03/14/2024 4:18 PM EST [facility] Blood Venous blood specimen / Unknown Venipuncture / Unknown 03/14/2024 9:49 AM EST 03/14/2024 9:49 AM EST us Porsha Shine NP LAB BLOOD ORDERABLES Final Resul t [facility] [address] [place] [address], [place] [phone] * Annual BMP Blood Test (09/30/2023) Annual BMP Blood Test abstracted us Historical Provider HEALTH MAINTENANCE Final Result * Depression Screening (09/25/2023) Depression Screening abstracted Historical Provider HEALTH MAINTENANCE Final Result * Hepatitis C Screening (01/22/2021) Hepatitis C Screening abstracted Historical Provider HEALTH MAINTENANCE Final Result * Colonoscopy (03/14/2020) Colonoscopy normal, abstracted Anatomical Region Laterality Modality Other Historical Provider HEALTH MAINTENANCE Final Result from Last 3 Months or Most Recently Relevant to Health Maintenance [place] Advance Directives Documents on File Type Date Recorded 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
--- OUTSIDE RECORDS SUMMARY | 2024-08-29 13:10 | XMS_ITS | Patient Health Record ---
Author Organization [facility] Address [address] [place] [address] Care Team Providers Care Clinical Services Director Name Role Phone Tamica Loaiza Primary Care Provider ISA Alonso [phone] Blanco Farias MD Unavailable Reason For Referral No Information Problems Problem Type SNOMED Code ICD Code Onset Dates Problem Status W/U Status Risk Notes Problem Chronic kidney disease, stage 3a (N18.31) Active confirmed Encounters Encounter Location Date Provider Diagnosis [facility] [address] [place] [phone] 10/08/2023 ISA PIMENTEL Chronic kidney disease, stage 3a N18.31 [facility] [address] [place] [phone] 09/09/2023 ISA PIMENTEL [facility] [address] [place] [phone] 09/25/2023 ISA PIMENTEL [facility] [address] [place] [phone] 10/08/2023 ISA PIMENTEL [facility] [address] [place] [address] 11/17/2023 ISA PIMENTEL [facility] [address] [place] [phone] 02/15/2024 ISA PIMENTEL [facility] [address] [place] [phone] 02/16/2024 ISA PIMENTEL [facility] [address] [place] [phone] 03/28/2024 ISA PIMENTEL [facility] [address] [place] [phone] 08/03/2024 ISA PIMENTEL Assessments Encounter Date Diagnosis (ICD Code) Assessment Notes Treatment Notes Treatment Clinical Notes Section Notes 10/08/2023 Chronic kidney disease, stage 3a (ICD-10 - N18.31) We spent the first part of our discussion talking about [facility] [place] and our goals. I emphasized that we [...] Importance of regular follow up with primary director of channel marketing AND HIS UROLOGIST -- given apparent prior [...] Insured Coverage Start Date Coverage End Date [facility] Medicare Advantage [id number] [place] [address] [id number] KODY PINEDA Self - patient is the insured
[2024-08-29 14:29] LABS: Prostate Specific Antigen 0.22 ng/mL (<0.05-4.0)
== END 2024-08-29 12:46 | disposition home or self-care (01) ==
LOC: HO.LAB 12:45
PROVIDERS: Visit Provider Nurse Practitioner Family
DX: N40.0 Benign prostatic hyperplasia without lower urinary tract symptoms (principal); Z12.5 Encounter for screening for malignant neoplasm of prostate
CPT/HCPCS: 36415; 84153

== ENCOUNTER 2024-09-06 12:59 | Outpatient (AMB) | payer MEDICARE, MEDICAID, SELFPAY ==
--- NOTE | 2024-09-06 13:10 | A.OFFVIS_ITS ---
Intake Visit Reasons: 6m/PSA/PVR Intake Note: Patient presents today for follow up on: Retention, BPH, OAB, and Elevated PSA,ED Urology Med: Gemtesa, Finasteride, Terazosin, Tadalafil, gemtesa Antibiotic Allergy: Penicillins, Vancomycin, and Doxycycline Blood Thinner: None PSA 08/29/24 : 0.22 Todays PVR: 170 mls Medical File Clerk Required: No Accompanied by: Self / Same As Patient Allergies Penicillins (PENICILLINS) Allergy (Severe, Verified 09/06/24 13:28) ANAPHYLAXIS gabapentin (GABAPENTIN) Allergy (Intermediate, Verified 09/06/24 13:28) RASH lamotrigine (From LAMICTAL) Allergy (Intermediate, Verified 09/06/24 13:28) RASH vancomycin (VANCOMYCIN) Allergy (Intermediate, Verified 09/06/24 13:28) NAUSEA & VOMITING doxycycline (DOXYCYCLINE) Adverse Reaction (Severe, Verified 09/06/24 13:28) DIARRHEA HPI Comments Details: Ash is a pleasant male. He is a patient of Dr. Gray. He is seen for the following urologic issues - erectile dysfunction - BPH with urinary leakage - overactive bladder - elevated PSA - 06/21 17 Current PVR 170cc Continue current therapy He is on Finasteride 5 mg, tadalafil 10 mg, terazosin 5 mg, Gemtessa Has complicated medical history 2+ glucose - no reported diabetes - will follow-up with primary care next month Has concerns that Gemtesa may no longer be covered by insurance. We will review for Myrbetriq. Lower urinary tract symptoms Ongoing Does have unsensed accidents suggestive of urge - Myrbetriq States stream is adequate Current medications terazosin, finasteride Prior medications tamsulosin Cystoscopy 12/20 small prostate - open neck PSA 06/21 [facility] 2.3, 06/21 C 18, 08/21 1.0, 09/21 0.4, 07/24 0.2 Retention was combination tolterodine and Myrbetriq - that elevated PSA Erectile dysfunction Longstanding Has trialed multiple different treatment options Did respond to injections Unable to currently afford these Can trial high-dose tadalafil daily PFSH Medical History Incontinence Vitamin D deficiency Constipation History of colon polyps Bilateral leg edema UTI (urinary tract infection) Herniation of lumbar intervertebral disc with radiculopathy Initial high blood pressure determined by examination Glaucoma Dry eyes Hernia of abdominal cavity Surgical History S/P lumbar spinal fusion Hx of inguinal hernia surgery History of lumbar laminectomy H/O knee surgery H/O hand surgery Hx of colonoscopy H/O angioplasty S/P cardiac cath Status post lumbar spine surgery for decompression of spinal cord Hx of tonsillectomy Social History Alcohol intake: current Patient Tobacco Use Status: Former Tobacco user Tobacco use type: Cigarette Cigarette Packs Per Day: 0.30 Years Smoked: 44 e-Cigarette/Vaping Use: Never Used Review of Systems Const Denies chills and Denies fever(s) Card Reports no additional complaints and Denies syncope Resp Denies cough GI Denies abdominal pain and Denies heartburn Reports as per HPI and Denies change in libido Neuro Denies syncope Psych Denies change in libido Endo Denies change in libido Physical Exam Const General: cooperative, healthy appearing, comfortable and no acute distress Orientation/consciousness: patient oriented x3 HEENT Face and sinus: Yes normal facial exam Mouth: moist mucous membranes Neck Neck: Yes normal visual inspection, Yes full ROM and Yes trachea midline Chest Chest palpation & inspection: normal inspection of the chest Resp Effort & Inspection: normal respiratory effort, able to speak in complete sentences and no respiratory distress GI Inspection: Yes normal to inspection Back/Spine/Pelvis Cervical Spine: normal cervical lordosis Thoracic/Lumbar Spine: thoracic and lumbar spine normal to inspection Skin General skin exam: no rashes or lesions noted Neuro General: patient oriented x3, gait normal, tone normal and moves all extremities Extrem General: Yes normal to inspection and Yes capillary refill normal Assessment & Plan Assessment & Plan (1) Urinary incontinence: Code(s): R32 - Unspecified urinary incontinence Category: Medical (2) Overactive bladder: Code(s): N32.81 - Overactive bladder Category: Medical (3) Urinary retention with incomplete bladder emptying: Code(s): R33.9 - Retention of urine, unspecified Category: Medical (4) BPH (benign prostatic hyperplasia): Code(s): N40.0 - Benign prostatic hyperplasia without lower urinary tract symptoms Category: Medical Plan 12 month follow-up Medications: Refilled finasteride 5 mg PO DAILY 90 tabs 3RF 90 days N13.8 - Other obstructive and reflux uropathy, N40.1 - Benign prostatic hyperplasia with lower urinary tract symptoms terazosin 5 mg PO BEDTIME 90 caps 3RF 90 days N13.8 - Other obstructive and reflux uropathy, N40.1 - Benign prostatic hyperplasia with lower urinary tract symptoms vibegron (Gemtesa) 75 mg PO DAILY 90 tabs 1RF Patient Instructions: This note is constructed using voice recognition software. While every effort has been made to ensure accuracy reading assistant errors may have been included. Imaging studies, laboratory and physical exam results were discussed and reviewed in detail. No major barriers to patient understanding were identified. An opportunity to ask questions regarding the treatment plan was provided. All questions were answered. The patient expressed understanding and agreement with the above treatment plan. The patient is aware they should contact our office by phone for worsening of their current condition or the appearance of new urologic symptoms. Compliance is encouraged with any medications and followup testing that is ordered. It is a privilege to participate in the urologic care of your patient. If you have any questions or concerns regarding treatment for the above conditions, or other urologic issues, please do not hesitate to contact me. The office telephone contact is [phone]. Sincerely, Dr Kailash Alvarez MD, [facility] [place] [facility] Compassionate Specialist Care for the Genitourinary System Coding Level of Care Code Est Pt Level 3 (71196) Diagnoses Urinary incontinence R32 Overactive bladder N32.81 Urinary retention with incomplete bladder emptying R33.9 BPH (benign prostatic hyperplasia) N40.0
--- OUTSIDE RECORDS SUMMARY | 2024-09-06 13:43 | XMS_ITS | Data Portability ---
Author Organization [place] - [facility], Allergy Address [address] [facility] [address] [place] [address] Care Team Providers Care Hand Counter Name Role Phone NERISSA CASPER Primary Care Provider [phone] NERISSA CASPER Referring Provider Assessment Encounter Date Assessment Date Assessment LastModified by Organization Details LastModified Time 08/29/2024 08/29/2024 68-year-old male with a history of chronic kidney disease and arthritis presents today for evaluation of imbalance without any room spinning vertigo. On exam today, he has a high-frequenc y hearing loss, slightly worse on the left in the high frequencies. Leighton-Hallpike is negative for any nystagmus. He does well with Romberg. He is a little unsteady with Fukuda step testing. I counseled him I do not see any otologic findings that would contribute to his imbalance. He informs me that he does exercises included one legged stands and squats which suggest that his balance is functional. I would recommend continuing to work with physical therapy and he may follow-up with us as needed. [email or web address] Not available 09/01/2024 07:38:20 Plan of Treatment Reminders Order Date Submit Date Provider Last Modified By Organization Details Last Modified Time Details Appointments None record ed. Lab None record ed. Referral None record ed. Procedures None record ed. Surgeries None record ed. Imaging None record ed. Medication Orders None record ed. Patient TargetsNo targets recorded. Patient InstructionsNo instructions recorded. Reason for Referral None Reported. Results Created Date Observation Date Name Description Value Unit Range Abnormal Flag Note LastModifiedBy Organization Detail LastModifiedTime 08/31/19 25 audio gram No observ ation record ed. BARCODE Not Available 2024 09:48:40 Result Notes None recorded. Problems Name Problem SNOMED Code Status Onset Date Resolution Date Notes Provider Name and Address Organization Details Recorded Time Abnormal auditory perceptio n [id number] Active 2017 Other abnormal auditory perception s, bilateral; Note: Date Diagnosed: 01/12/2018 2:07 PM (H93.293) Not Available [facility] 4 02:15:30 Disorder of nasal sinus 2892865 Active 2017 Other specified disorders of nose and nasal sinuses; Note: Date Diagnosed: 10/19/2017 2:09 PM (J34.89) Not Available [facility] 4 02:15:16 Disorder of the nose 18998416 Active 2017 Other specified disorders of nose and nasal sinuses; Note: Date Diagnosed: 10/19/2017 2:09 PM (J34.89) Not Available [facility] 4 02:15:16 Sensorine ural hearing loss of bilateral ears 276256493 Active 2024 JESSICA QUINTANILLA [address] [facility],[place] [address], [place], [address] , [facility] - [facility] 5 14:51:01 Impairmen t of balance 198504343 Active 2024 LUNA MALLOY MD [address] [place] [address],[place] [address], [place], [address] , [facility] 5 07:36:30 Problem Notes None recorded. Procedures Surgical History Date Name Laterality Status Provider Name and Address Organization Details Recorded Time 08/30/19 25 Comp Audio with Tymps - 01702 & 31805 completed JESSICA QUINTANILLA [address] [facility],[place] [address], [place], [address], [facility] - [facility] 08/29/2024 14:50:45 tonsillectomy completed LUNA MALLOY MD [address] [facility],[address], [address], [facility] - [facility] 09/01/2024 07:33:23 Imaging Results None recorded. Procedure Notes None recorded. Medical Equipment None Reported. Allergies Allergen ID Allergen Name Allergen Category Reaction Reaction Severity Criticality Documentation Date Start Date Code Code System Note Provider Name and Address Organization Details Recorded Time 523554 doxycycli ne Not available Not available Not available Not available 08/29/2024 3640 RxNorm Katherine Coleman MONICA acevedo - [facility] 5 15:16:41 495198 allopurin ol medicatio n Not available Not available Not available 08/29/2024 519 RxNorm Katherine Coleman curtis [facility] 5 15:17:06 08667 Lamictal medicatio n other Not available Not available 07/14/2023 05679 2 RxNorm React ion: unkno wn, unspe cifie d;; Not Available [facility] 4 00:50:11 40999 gabapenti n medicatio n other Not available Not available 07/14/2023 39380 RxNorm React ion: unkno wn, unspe cifie d;; Not Available [facility] 4 00:50:24 62734 Product containin g penicilli n (product) medicatio n other Not available Not available 07/14/2023 49526 8001 SNOMED React ion: unkno wn, unspe cifie d;; Not Available [facility] 4 00:50:31 Medications Name Sig Start Date Stop Date Status Note LastModified by Organization Details LastModified Time multivita min men 50 tablets TAKE 1 TABLET BY MOUTH DAILY active Not Available Not Available No t Available amantadin e HCl 100 mg tablet TAKE 1 TABLET BY MOUTH TWICE DAILY active Not Available Not Available No t Available tretinoin 0.1 % topical cream 08/29 completed Medicati on ID: [id number] D uration Value: 30 Brand Name: tretinoi n Send Method: E-Prescr ibed Sub s Allowed: subs OK Speci al Instruct ion: CHELY A PEA SIZED AMOUNT TO THE FACE AT THE END OF THE DAY BEFORE APPLY ING A NON-COME DOGENIC MOISTURI ZER Medi cationGe nericNam e: tretinoi n Not Available Not Available Not Available terazosin 5 mg capsule TAKE 1 CAPSULE BY MOUTH AT BEDTIME active Not Available Not Available No t Available doxepin 50 mg capsule 08/29 completed Medicati on ID: [id number] D uration Value: 28 Brand Name: doxepin Send Method: E-Prescr ibed Sub s Allowed: subs OK Medic ationGen ericName : doxepin Not Available Not Available Not Available doxycycli ne hyclate 100 mg capsule 08/29 completed Medicati on ID: [id number] D uration Value: 7 Brand Name: doxycycl ine hyclate Send Method: E-Prescr ibed Sub s Allowed: subs OK Medic ationGen ericName : doxycycl ine hyclate Not Available Not Available Not Available atorvasta tin 20 mg tablet TAKE 1 TABLET BY MOUTH DAILY active Not Available Not Available No t Available ketoconaz ole 2 % shampoo active Not Available Not Available Not Available cetirizin e 10 mg tablet TAKE 1 TABLET BY MOUTH EVERY DAY active Not Available Not Available No t Available ofloxacin 0.3 % eye drops 08/29 completed Medicati on ID: [id number] D uration Value: 11 Brand Name: ofloxaci n Send Method: E-Prescr ibed Sub s Allowed: subs OK Medic ationGen ericName : ofloxaci n Not Available Not Available Not Available doxepin 25 mg capsule 08/29 completed Medicati on ID: [id number] D uration Value: 15 Brand Name: doxepin Send Method: E-Prescr ibed Sub s Allowed: subs OK Medic ationGen ericName : doxepin Not Available Not Available Not Available valacyclo vir 1 gram tablet Take 1 tablet every 12 hours by oral route. active Not Available Not Available No t Available methylphe nidate 20 mg tablet 08/29 completed Medicati on ID: [id number] D uration Value: 28 Brand Name: methylph enidate HCl Send Method: E-Prescr ibed Sub s Allowed: subs OK Speci al Instruct ion: TK 1 T PO QD IN THE AFTERNOO N Medica tionGene ricName: methylph enidate HCl Not Available Not Available Not Available clonazepa m 0.5 mg tablet TAKE 1 TABLET BY MOUTH TWICE DAILY NEEDED active Not Available Not Available No t Available amlodipin e 5 mg tablet 2017 active Medicati on ID: [id number] D uration Value: 30 Brand Name: amlodipi ne Send Method: E-Prescr ibed Sub s Allowed: subs OK Speci al Instruct ion: TK 1 T PO D Medica tionGene ricName: amlodipi ne Not Available Not Available Not Available tretinoin 0.05 % topical cream 08/29 completed Medicati on ID: [id number] D uration Value: 20 Brand Name: tretinoi n Send Method: E-Prescr ibed Sub s Allowed: subs OK Speci al Instruct ion: APPLY A PEA SIZED AMOUNT TO DRY SKIN ON FACE HS BEFORE COVERING WITH A NON-COME DOGENIC MOISTURI ZER Medi cationGe nericNam e: tretinoi n Not Available Not Available Not Available doxycycli ne monohydra te 100 mg tablet 08/29 completed Medicati on ID: [id number] D uration Value: 10 Brand Name: doxycycl ine monohydr ate Send Method: E-Prescr ibed Sub s Allowed: subs OK Speci al Instruct ion: TAKE 1 TABLET BY MOUTH TWICE A DAY FOR 10 DAYS Med icationG enericNa me: doxycycl ine monohydr ate Not Available Not Available Not Available baclofen 20 mg tablet TAKE 1 TABLET BY MOUTH THREE TIMES DAILY active Not Available Not Available No t Available oxycodone -acetamin ophen 10 mg-325 mg tablet TAKE 1 TABLET BY MOUTH EVERY 4 HOURS NEEDED FOR 7 DAYS 08/29 completed Not Available Not Available Not Available tamsulosi n 0.4 mg capsule 08/29 completed Medicati on ID: [id number] D uration Value: 30 Brand Name: tamsulos in Send Method: E-Prescr ibed Sub s Allowed: subs OK Speci al Instruct ion: TK ONE C PO QD. TAKE 30 MINS AFTER SAME MEAL EVERY DAY Medi cationGe nericNam e: tamsulos in Not Available Not Available Not Available erythromy helen 5 mg/gram (0.5 %) eye ointment 08/29 completed Medicati on ID: [id number] D uration Value: 7 Brand Name: erythrom ycin Sen d Method: E-Prescr ibed Sub s Allowed: subs OK Medic ationGen ericName : erythrom ycin Not Available Not Available Not Available losartan 25 mg tablet TAKE 1 TABLET BY MOUTH DAILY active Not Available Not Available No t Available docusate sodium 100 mg capsule Take 1 capsule every day by oral route. active Not Available Not Available No t Available omeprazol e 20 mg capsule,d elayed release TAKE 1 CAPSULE BY MOUTH DAILY active Not Available Not Available No t Available monteluka st 10 mg tablet 2017 active Medicati on ID: [id number] D uration Value: 30 Brand Name: monteluk ast Send Method: E-Prescr ibed Sub s Allowed: subs OK Speci al Instruct ion: TK 1 T PO HS Medic ationGen ericName : monteluk ast Not Available Not Available Not Available mupirocin 2 % topical ointment Apply 1 a small amount to affected area twice a day 2017 active Medicati on ID: [id number] D uration Value: 14 Prescri bed By Name: Beto boogie MD Brand Name: mupiroci n Send Method: E-Prescr ibed Sub s Allowed: subs OK Medic ationGen ericName : mupiroci n Not Available Not Available Not Available ibuprofen 600 mg tablet 08/29 completed Medicati on ID: [id number] D uration Value: 14 Brand Name: ibuprofe n Send Method: E-Prescr ibed Sub s Allowed: subs OK Speci al Instruct ion: TK 1 T PO Q 6 H PRN P AND 14 DAYS Med icationG enericNa me: ibuprofe n Not Available Not Available Not Available polyethyl farzad glycol 3350 17 gram/dose oral powder 08/29 completed Medicati on ID: [id number] D uration Value: 30 Brand Name: polyethy toya glycol 3350 Sen d Method: E-Prescr ibed Sub s Allowed: subs OK Speci al Instruct ion: MIX 17GM IN WATER AND DRINK PO D Medica tionGene ricName: polyethy toya glycol 3350 Not Available Not Available Not Available SSD 1 % topical cream 08/29 completed Medicati on ID: [id number] D uration Value: 30 Brand Name: SSD Send Method: E-Prescr ibed Sub s Allowed: subs OK Speci al Instruct ion: CHELY AND RUB IN A THIN FILM AA QAM AND QPM Medi cationGe nericNam e: SSD Not Available Not Available Not Available colchicin e 0.6 mg tablet TAKE 1 TABLET BY MOUTH DAILY active Not Available Not Available No t Available lisinopri l 40 mg tablet 2017 active Medicati on ID: [id number] D uration Value: 30 Brand Name: lisinopr il Send Method: E-Prescr ibed Sub s Allowed: subs OK Speci al Instruct ion: TK 1 T PO D Medica tionGene ricName: lisinopr il Not Available Not Available Not Available fluticaso ne propionat e 50 mcg/actua tion nasal spray,naomy pension SHAKE WELL BEFORE USE AND INSTILL 2 SPRAYS INTO EACH NOSTRILS EVERY DAY active Not Available Not Available No t Available finasteri de 5 mg tablet TAKE 1 TABLET BY MOUTH DAILY active Not Available Not Available No t Available loratadin e 10 mg tablet TAKE 1 TABLET BY MOUTH EVERY DAY 08/29 completed Not Available Not Available Not Available naproxen 500 mg tablet 08/29 completed Medicati on ID: [id number] D uration Value: 30 Brand Name: naproxen Send Method: E-Prescr ibed Sub s Allowed: subs OK Speci al Instruct ion: TK 1 T PO BID WF OR MILK PRF PAIN Med icationG enericNa me: naproxen Not Available Not Available Not Available tobramyci n 0.3 %-dexamet hasone 0.1 % eye drops,naomy pension 08/29 completed Medicati on ID: [id number] D uration Value: 12 Brand Name: tobramyc in-dexam ethasone Send Method: E-Prescr ibed Sub s Allowed: subs OK Medic ationGen ericName : tobramyc in-dexam ethasone Not Available Not Available Not Available oxycodone 5 mg tablet 08/29 completed Medicati on ID: [id number] D uration Value: 7 Brand Name: oxycodon e Send Method: E-Prescr ibed Sub s Allowed: subs OK Speci al Instruct ion: TK 1 T PO Q 6 H PRN FOR POST OPERATIV E PAIN Med icationG enericNa me: oxycodon e Not Available Not Available Not Available metoprolo l tartrate 25 mg tablet TAKE 1/2 TABLET BY MOUTH TWICE DAILY active Not Available Not Available No t Available topiramat e 50 mg tablet TAKE 1 TABLET BY MOUTH DAILY active Not Available Not Available No t Available pregabali n 225 mg capsule TAKE 1 CAPSULE BY MOUTH AT BEDTIME active Not Available Not Available No t Available Lyrica 150 mg capsule 08/29 completed Medicati on ID: [id number] D uration Value: 30 Brand Name: Lyrica S end Method: E-Prescr ibed Sub s Allowed: subs OK Speci al Instruct ion: TK ONE C PO TID Medi cationGe nericNam e: Lyrica Not Available Not Available Not Available ProAir HFA 90 mcg/actua tion aerosol inhaler 08/29 completed Medicati on ID: [id number] D uration Value: 16 Brand Name: ProAir HFA Send Method: E-Prescr ibed Sub s Allowed: subs OK Speci al Instruct ion: INHALE TWO PUFFS PO INTO THE LUNGS Q 4 H PRN FOR SHORTNES S OF BREATH M edicatio nGeneric Name: ProAir HFA Not Available Not Available Not Available quetiapin e 50 mg tablet TAKE 1 TO 2 TABLETS BY MOUTH AT BEDTIME NEEDED active Not Available Not Available No t Available cholecalc iferol (vitamin D3) 25 mcg (1,000 unit) tablet TAKE 1 TABLET BY MOUTH EVERY DAY active Not Available Not Available No t Available lisdexamf etamine 70 mg capsule TAKE 1 CAPSULE BY MOUTH DAILY 08/29 completed Not Available Not Available Not Available Vyvanse 50 mg capsule 08/29 completed Medicati on ID: [id number] D uration Value: 28 Brand Name: Vyvanse Send Method: E-Prescr ibed Sub s Allowed: subs OK Medic ationGen ericName : Vyvanse Not Available Not Available Not Available desvenlaf axine succinate ER 100 mg tablet,ex tended release 24 hr 2017 active Medicati on ID: [id number] D uration Value: 28 Brand Name: desvenla faxine succinat e Send Method: E-Prescr ibed Sub s Allowed: subs OK Speci al Instruct ion: TK 2 TS PO QD Medic ationGen ericName : desvenla faxine succinat e Not Available Not Available Not Available quetiapin e ER 150 mg tablet,ex tended release 24 hr 08/29 completed Medicati on ID: [id number] D uration Value: 28 Brand Name: quetiapi ne Send Method: E-Prescr ibed Sub s Allowed: subs OK Medic ationGen ericName : quetiapi ne Not Available Not Available Not Available Fetzima 120 mg capsule,e xtended release 08/29 completed Medicati on ID: [id number] D uration Value: 28 Brand Name: Fetzima Send Method: E-Prescr ibed Sub s Allowed: subs OK Speci al Instruct ion: TK 1 C PO QAM Medi cationGe nericNam e: Fetzima Not Available Not Available Not Available Jardiance 10 mg tablet TAKE 1 TABLET BY MOUTH DAILY IN THE MORNING active Not Available Not Available No t Available Acne Medicatio n 10 % topical gel 2017 active Medicati on ID: [id number] D uration Value: 15 Brand Name: Acne Medicati on Send Method: E-Prescr ibed Sub s Allowed: subs OK Medic ationGen ericName : Acne Medicati on Not Available Not Available Not Available selenium sulfide 2.5 % lotion APPLY TOPICALL Y TO THE AFFECTED AREA OF THE SCALP AND FACE EVERY DAY. LEAVE FOR 10 MINUTES AND THEN RINSE OFF active Not Available Not Available No t Available Trintelli x 20 mg tablet TAKE 1 TABLET BY MOUTH EVERY MORNING active Not Available Not Available No t Available Ingrezza 40 mg capsule TAKE ONE CAPSULE BY MOUTH DAILY FOR ONE WEEK THEN TAKE TWO CAPSULES BY MOUTH DAILY 08/29 completed Not Available Not Available Not Available Ingrezza 80 mg capsule TAKE 1 CAPSULE BY MOUTH DAILY active Not Available Not Available No t Available albuterol sulf 90 mcg/actua tion breath activated powder inhaler,s ensor Inhale 2 puffs every 4 hours by inhalati on route. active Not Available Not Available No t Available Gemtesa 75 mg tablet TAKE 1 TABLET BY MOUTH DAILY active Not Available Not Available No t Available Vitals Date Recorded Body height Body mass index (BMI) Body weight Provider Name and Address Organization Details Last Updated DateTime 08/29/2024 167.64 cm 31.5 kg/m2 27071.51 g Katherine Cee [place] - [facility] 08/29/2024 15:06:48 Social History None recorded. Functional Status None recorded. Mental Status None recorded. Family History Nothing Reported. Medical History Condition Response Anxiety Y Arthritis Y Hypertension Y Past Encounters Encounter ID Performer Location Encounter Start Date Encounter Closed Date Diagnosis/Indication Diagnosis SNOMED-CT Code Diagnosis ICD10 Code Diagnosis Note [id number] LUNA MALLOY MD [facility] [address] [place] [address] 08/29/2024 14:20:04 08/29/2024 15:25:22 Sensorineural hearing loss of bilateral ears [id number] H90.3 Audiologic al evaluation results: Normal sloping to mild sensorineu ral hearing loss with excellent word recognitio n, bilaterall y. Asymmetry present from 4k-8kHz with L>R Tympanomet ry: Right Ear:Type A Left Ear:Type A Impairment of balance 38 [id number] R26.89 Health Concerns Section Related Observation LastModified by Organization Detai ls LastModified Time None Recorded Concern Status LastModified by Organization Details LastModified Time None Recorded Advance Directives Directive None Recorded Payers Insurance Date Sequence Insurance Name Policy Number Policy Marx Covered Member ID Marx Member ID Guarantor Name 09/05/2024 2 [place] [facility] Fredy Nelson [id number] Fredy Nelson 09/05/2024 1 [place]MEDICARE [place]PLACEMENT PPO) [id number] Fredy Nelson [id number] Fredy Nelson Notes Date Note Type Note Provider Name and Address Organization Details Recorded Time 08/29/2024 text/html 68 yo M presents for imbalance ckd 3aduring the day losing the balancefeeling like he is going to fall no room spinningabout a year no migraineschronic back pain2 back surgeries including spinal fusionvision is goodeyes checked yearly no DMBP controlled allergies multiple seasonalpreviously seen for nasal sores no head imagingsaw neurology for right arm, dx with slight tendinitis, wears arm splints at night does a lot of balance exercisesstanding on one legone legged squatsworks with Hinge therapy LUNA MALLOY MD [address] [place] [address], [place], [address], [facility] - [facility] 09/01/2024 07:38:39
--- OUTSIDE RECORDS SUMMARY | 2024-09-06 13:43 | XMS_ITS | Clinical Summary ---
Author Organization [address] [facility] Address [address] [place] [address] Phone Care Team Providers Care Fun House Operator Name Role Phone Tamica Loaiza DO Primary Care Provider [phone] Allergies Active Allergy Reactions Criticality Noted Date [...] 30 tablet 2 08/25/19 25 Active multivitamin-mi g-olik-SK-vit K (Adults Multivitamin) 18 mg iron-400 mcg-25 mcg tablet TAKE 1 TABLET BY MOUTH DAILY 90 each 1 08/25/19 25 Active multivitamin-mi c-pnua-PN-vit K (Adults Multivitamin) 18 mg iron-400 mcg-25 [...] diastolic (congestiv e) heart failure (CMS/HCC V24, [facility] V28) 12/04/2023 Localized edema 12/04/2023 Post-traumatic osteoarthritis of right knee 04/30 Primary osteoarthritis of left knee 05/14/2023 Stage 3a chronic kidney dise ase (CKD) ([facility] V24, [facility] V28) 08/21/2021 (HFpEF) heart failure with p reserved ejection fraction ([facility] V24, [facility] V28) 03/06/2021 Overview (12/04/2023): HFpEF [...] Depression 05/21/2009 Overview (12/04/2023): Harmeet Bolton at [facility] [phone] ED (erectile dysfunction) 05/21/2009 Overview (12/04/2023): Failed oral meds. Bimix 01/11 GERD (gastroesophageal reflux disease) 0 HTN (hypertension) 05/21/2009 Overview (12/04/2023): Last Assessment & Plan: Well-controlled. Assessment & Plan (05/18/2024 1:37 PM EDT): Blood pressure is well-controlled in the office today at 120/79. Continue with losartan, terazosin, furosemide and Toprol XL as prescribed. Incontinence 05/21/2009 Overview (12/04/2023): Seen by [facility] on 01/09/21 with nl cystoscopy. Had trialed terazosin 10mg daily, flomax with ongoing urgency. Recommended tolterodine 2mg daily Lumbago with sciatica 05/21/2009 Overview (12/04/2023): [facility] managing pain meds. He has seen Dr Sorto. Some CS injections in past (~ 20 in number). [facility]2016 for LILLY Planning for L4-5 discectomy with NS, Dr. Glover Obstructive sleep apnea 05/21/2009 Overview (12/04/2023): On CPAP device ~ 2003 [facility] Split Night Polysomnogram Date 08/31/2011. Without PAP: [...] average oxygen saturation was 95%; PLMs ~3. [facility] Home Polysomnogram: Date 03/04/2018; AHI 54, Unclassified apneas 0; Obstructive apneas 205; Central apneas 0; Mixed apneas 0; hypopneas 249; average oxygen saturation 89% (lowest 40% with saturations <88% for 5% or more of study). Oxygen saturations levels were questioned on the final report. [facility] Polysomnogram treatment study. Date 05/22/2018. SE 67 [...] Telephone Internal Medicine - [facility] [address] [place] [address] Tamica Loaiza DO Error from [...] recurrent ops, 02/06/[address] Rodgers at [facility] MOUTH SURGERY PROCEDURE: ORAL SURGERY PROCEDURE HAND [...] 05/21/2009 DX:Depression; C OMMENT: Harmeet Bolton at [facility] [phone] ED (erectile dysfunction) 05/21/2009 DX:ED (erectile dysfunction); [...] with sciatica 05/21/2009 DX:Lumbago with sciatica; COMMENT: [facility] managing pain meds. He has seen Dr Sorto. Some CS injections in past (- 20 in number). [facility] 11/2016 for [...] cell trait (CMS/HCC V24) DX:Sickle cell trait ([facility]) Pneumonia DX:Pneumonia Bronchospasm DX:Bronchospasm Anxiety DX:Anxiety Weight loss DX:Weight loss Diabetes mellitus type 2, co ntrolled, with complications ([facility] V24, [facility] V28) DX:Diabetes mellitus type 2, controlled, with complications ([facility]) Irritable bowel syndrome DX:Irri table bowel syndrome ADHD (attention deficit hype ractivity disorder) Arthritis CHF (congestive heart failur e) ([facility] V24, [facility] V28) Chronic kidney disease Family History Medical [...] care for your loved ones. For example, director maternal child or elderly care for an older adult? [...] Visit Internal Medicine - [facility] [address] [place] [address] Tamica Loaiza DO [address] [place] [address] 11/23/2024 1:10 PM EDT Office Visit [facility] [address] [place] [phone] Elsa Carr, HANNAH [address] [place] [address] Health Maintenance Due Date Last Done Comments COVID-19 Vaccine (#1) 1960 RSV Immunization Adult Patients (1 - Risk 60-74 years 1-dose series) 2013 Lung Cancer Screening (Low Dose CT) 02/08/2022 Medicare Annual Wellness Visit 09/24/2024 09/25/2023 Hypertension/CHF/CAD Annual BMP Blood Test 09/29/2024 09/30/2023, 09/30/2023, 07/17/2023 Influenza Vaccine (#1) 2024 , 11/11/2022, 12/08/2021, Additional history exists Colorectal Cancer Screening: Colonoscopy 03/14/2025 03/14/2020 Depression Screening 04/26/2025 04/26/2024, 09/25/19 Social Influencers of Health Screening 04/26/2025 04/26/2024 Falls Risk Assessment 04/29/2025 04/29/2024 DTaP,Tdap,and Td Vaccines (3 - Td or Tdap) 01/31/2026 02/01/2016, 03/02/2008 Cholesterol Screening (Lipid Panel) 03/14/2029 03/14/2024, 08/15/2022 Hepatitis C Screening Completed 01/22/2021 Pneumococcal Vaccine: 50+ Years Completed 01/30/2021, 12/08/2018, 08/12/2007 Zoster Vaccines Completed 12/08/2021, 10/2021, 12/23/2014 Abdominal Aortic Aneurysm (AAA) Screen Completed 05/20/2024 [...] Signed Date: 05/20/2024 11:26 ET Workstation ID: [id number] Transcribed By: Self Edit Transcribed Date: 05/20/2024 [...] Signed Date: 05/20/2024 11:26 ET Workstation ID: [id number] Transcribed By: Self Edit Transcribed Date: 05/20/2024 11:22 ET Tamicathien Loaiza DO IMG US PROCEDURES Final Result * Lipid panel with reflex to direct LDL (03/14/2024 9:49 AM EST) [facility] Cholesterol 122 0 - 200 mg/dL LAB CHEMISTRY METHOD 03/14/2024 4:18 PM EST [facility] Triglycerides 124 0 - 150 mg/dL LAB CHEMISTRY METHOD 03/14/2024 4:18 PM EST [facility] HDL 52 >=40 mg/dL LAB CHEMISTRY METHOD 03/14/2024 4:18 PM EST [facility] LDL Calculated 45 0 - 100 mg/dL LAB CHEMISTRY METHOD 03/14/2024 4:18 PM EST [facility] VLDL Cholesterol Sukumar 24.8 mg/dL LAB CHEMISTRY METHOD 03/14/2024 4:18 PM EST [facility] Non HDL Chol. (LDL+VLDL) 70 <145 mg/dL LAB CHEMISTRY METHOD 03/14/2024 4:18 PM EST [facility] Chol/HDL Ratio 2.3 0.0 - 4.4 LAB CHEMISTRY METHOD 03/14/2024 4:18 PM EST [facility] Blood Venous blood specimen / Unknown Venipuncture / Unknown 03/14/2024 9:49 AM EST 03/14/2024 9:49 AM EST Porsha Shine NP LAB BLOOD ORDERABLES Final Resul t [facility] [address] [place] [address], [place] [phone] * Annual BMP Blood Test (09/30/2023) Pathologist [facility] Annual BMP Blood Test abstracted Historical Provider HEALTH MAINTENANCE Final Result * Depression Screening (09/25/2023) [facility] Depression Screening abstracted Historical Provider HEALTH MAINTENANCE Final Result * Hepatitis C Screening (01/22/2021) [facility] Hepatitis C Screening abstracted [facility] Provider HEALTH MAINTENANCE Final Result * Colonoscopy (03/14/2020) [facility] Colonoscopy normal, abstracted Anatomical Region Laterality Modality Other [facility] Provider HEALTH MAINTENANCE Final Result from Last 3 Months or Most Recently Relevant to Health Maintenance [place] Advance Directives Documents on File Type Date Recorded Patient Swimming Pool Maintenance Expl anation Health Care Decision (hx) 12/02/2022 AD ANTHONY DIRECTIVE Health Care Decision (hx) 12/02/2022 AD ANTHONY DIRECTIVE Health Care Decision (hx) 12/02/2022 AD ANTHONY DIRECTIVE Health Care Decision (hx) 12/02/2022 AD ANTHONY DIRECTIVE Health Care Decision (hx) 12/02/2022 AD ANTHONY DIRECTIVE Health Care Decision (hx) 12/02/2022 AD ANTHONY DIRECTIVE Health Care Decision (hx) 12/02/2022 AD ANTHONY DIRECTIVE Care Teams Fun House Operator Relationship Specialty Start Date End Date Tamica Loaiza DO [address] [place] [address] PCP - General 12/07/23
--- OUTSIDE RECORDS SUMMARY | 2024-09-06 13:43 | XMS_ITS | Patient Health Record ---
Author Organization [facility] Address [address] [place] [address] Care Team Providers Care Production Coordinator Name Role Phone Tamica Loaiza Primary Care Provider ISA Alonso [phone] Blanco Farias MD Unavailable Reason For Referral No Information Problems Problem Type SNOMED Code ICD Code Onset Dates Problem Status W/U Status Risk Notes Problem Chronic kidney disease stage 3A (disorder) (675529398) Chronic kidney disease, stage 3a (N18.31) Active confirmed Encounters Encounter Location Date Provider Diagnosis [facility] [address] [place] [phone] 10/08/2023 ISA PIMENTEL Chronic kidney disease, stage 3a N18.31 [facility] [address] [place] [phone] 09/09/2023 ISA PIMENTEL [facility] [address] [place] [phone] 09/25/2023 ISA PIMENTEL [facility] [address] [place] [phone] 10/08/2023 ISA PIMENTEL [facility] [address] [place] [phone] 11/17/2023 ISA PIMENTEL [facility] [address] [place] [phone] 02/15/2024 ISA PIMENTEL [facility] [address] [place] [phone] 02/16/2024 ISA PIMENTEL [facility] [address] [place] [phone] 03/28/2024 ISA PIMENTEL [facility] [address] [place] [address] 08/03/2024 ISA PIMENTEL Assessments Encounter Date Diagnosis (ICD Code) Assessment Notes Treatment Notes Treatment Clinical Notes Section Notes 10/08/2023 Chronic kidney disease, stage 3a (ICD-10 - N18.31) We spent the first part of our discussion talking about Jenn Rykert and our goals. I emphasized that we [...] Importance of regular follow up with primary customer contact representative AND HIS UROLOGIST -- given apparent prior [...] Insured Coverage Start Date Coverage End Date [facility] Medicare Advantage [id number] [place] [address] [id number] KODY PINEDA Self - patient is the insured
--- OUTSIDE RECORDS SUMMARY | 2024-09-06 13:43 | XMS_ITS | Encounter Summary ---
Author Organization [facility] Address [address] [phone] Phone Care Team Providers Care Security System Technician Name Role Phone Tamica Loaiza Primary Care Provider [phone] Encounter Details Date Type Department Care Team (Late Contact Info) Description 08/28/2024 Orders Only [facility] [address] [phone] [place] [facility] [address] [phone] Stage 3a chronic kidney disease [...] Office Visit [facility] [address] [phone] Blanco Farias MD [address] [phone] documented as of this encounter Visit Diagnoses Diagnosis Stage 3a chronic kidney disease (HCC) Hypertensive disorder Bilateral lower limb edema documented in this encounter Care Teams Security System Technician Relationship Specialty Start Date End Date Tamica Loaiza [address] [place] [address] PCP - General Internal Medicine 03/17/24 documented as of this encounter
== END 2024-09-06 14:08 | disposition home or self-care (01) ==
LOC: HO.HUSH 13:04
PROVIDERS: PCP Family Medicine; Visit Provider Urology
DX: R32 Unspecified urinary incontinence (principal); N32.81 Overactive bladder; R33.9 Retention of urine, unspecified; N40.0 Benign prostatic hyperplasia without lower urinary tract symptoms; Z13.9 Encounter for screening, unspecified
CPT/HCPCS: 99213

== ENCOUNTER → 2024-09-06 12:59 | Outpatient (BNVA) | payer MEDICARE, MEDICAID, SELFPAY | PROVIDERS: PCP Family Medicine; Visit Provider Urology | DX: R32 Unspecified urinary incontinence (principal); N32.81 Overactive bladder; R33.9 Retention of urine, unspecified; N40.0 Benign prostatic hyperplasia without lower urinary tract symptoms; R97.20 Elevated prostate specific antigen [PSA]; N52.9 Male erectile dysfunction, unspecified | CPT/HCPCS: 51798; 81003; 99212 ==